=== PATIENT | female | born 1940 | race Caucasian/White ===

== ENCOUNTER → 2018-01-04 | Outpatient (CLI) | payer MEDICARE, OTHER ==
[~2018-01-04] MED LIST: ACCUNEB SO1.25 MG/1; ADVAIR 500-501 EACH INH; ATIVAN0.5 MG PO; AZASITE2.5 ML; AZASITE2.5 ML OP; AZASITE2.5 ML OPHTHALMIC; BROMDAY; BROMFENAC SODI2.5 ML OP; BROMFENAC SODI2.5 ML OPHTHALMIC; CARVEDILOL6.25 MG PO; CO Q-10100 MG PO; COQ-10100 MG PO; COREG6.25 MG PO; COUMADIN 1MG TAB1 M1 PO; COUMADIN 2 MG TA2 M1 PO; COUMADIN 3 MG TA3 M1 PO; DILTIAZEM; DILTIAZEM 24HR240 M2 PO; DILTIAZEM ER120 M1 PO; DUONEB 2.5-0.5 M3 ML INH; FLONASE 0.05%50 MCG NASAL; LASIX 40 MG TAB40 M1 PO; LASIX 40 MG TAB40 M2 PO; LIPITOR 10 MG10 M1 PO; LIPITOR10 MG PO; LISINOPRIL5 MG; LISINOPRIL5 MG PO; MIRAPEX0.125 MG PO; MUCINEX TA600 MG/TA2 PO; MUCINEX600 MG PO; NITROGLYCERIN0.4 MG SUBLING; POTASSIUM20 PO; PREDNISONE 10 M10 M1 PO; PREDNISONE 10 M10 MG PO; PREDNISONE 20 M20 MG PO; PRINIVIL5 MG PO; SINGULAIR 10 MG10 M1 PO; VENTOLIN HFA 108; VENTOLIN HFA 1818 GM INH; VENTOLIN HFA INH8 GM INH; VITAMIN D1000 UNI1 PO; VITAMIN D400 UNI1 PO; VITAMIN D400 UNIT PO; XANAX 0.5 MG0.5 M1 PO; XANAX 0.5 MG0.5 MG PO; XOPENEX HF1 UDINHALE IH; XOPENEX HF1 UDINHALE INH; ZESTORETIC 20-1 EAC3 PO
== END ==
LOC: M.RAD 10:50
DX: I51.7 Cardiomegaly (principal); I25.9 Chronic ischemic heart disease, unspecified; I10 Essential (primary) hypertension; E78.5 Hyperlipidemia, unspecified; R13.10 Dysphagia, unspecified; Z95.1 Presence of aortocoronary bypass graft

== ENCOUNTER → 2018-01-09 | Outpatient (CLI) | payer MEDICARE, OTHER | LOC: M.RAD 10:23 | DX: R13.12 Dysphagia, oropharyngeal phase (principal); I25.9 Chronic ischemic heart disease, unspecified; I10 Essential (primary) hypertension; E78.5 Hyperlipidemia, unspecified ==

== ENCOUNTER → 2018-01-11 | Outpatient (CLI) | payer MEDICARE, OTHER | LOC: M.NUC 01-04 11:51 | DX: K31.84 Gastroparesis (principal); I10 Essential (primary) hypertension; E78.5 Hyperlipidemia, unspecified; I25.9 Chronic ischemic heart disease, unspecified; R13.10 Dysphagia, unspecified ==

== ENCOUNTER → 2018-03-08 | Outpatient (CLI) | payer MEDICARE, OTHER ==
[2018-03-08 10:59] LABS: ALBUMIN 3.6 g/dL (3.4-5.0); CALCIUM 8.8 mg/dL (8.5-10.1); CREATININE 1.7 mg/dL (0.6-1.3); POTASSIUM 4.1 mmol/L (3.5-5.1); TOTAL BILIRUBIN 0.5 mg/dL (<0.1-1.0); TOTAL PROTEIN 7.4 g/dL (6.4-8.2)
[2018-03-09 10:13] LABS: COMPLEMENT-C4 26 mg/dL (14-44); HEPATITIS B SURFACE AG Negative (Negative)
[2018-03-09 10:59] LABS: GLYCOHEMOGLOBIN (HGB A1C) 5.4 % (4.8-5.6)
[2018-03-12 09:09] LABS: ANA INTERPRETATION Positive (Negative)
[2018-03-13 07:07] LABS: GLOBULIN TOTAL 3.2 g/dL (2.2-3.9); M-SPIKE Not Observed g/dL (Not Observed)
== END ==
LOC: M.ULTRA 09:30
PROVIDERS: Internal Medicine Nephrology
DX: N18.5 Chronic kidney disease, stage 5 (principal); R79.89 Other specified abnormal findings of blood chemistry

== ENCOUNTER → 2018-03-12 | Outpatient (CLI) | payer MEDICARE, OTHER ==
[2018-03-13 05:14] LABS: URINE CREATININE 67.1 mg/dL (Not Estab.); URINE CREATININE (GM/24H) 805 mg/24 hr (800-1800); URINE PROTEIN (MG/DL) 17.8 mg/dL (Not Estab.)
[2018-03-14 16:08] LABS: URINE PROTEIN 214 mg/24 hr (30-150)
== END ==
LOC: M.LAB 09:44
PROVIDERS: Internal Medicine Nephrology
DX: N18.4 Chronic kidney disease, stage 4 (severe) (principal); I12.9 Hypertensive chronic kidney disease with stage 1 through stage 4 chronic kidney disease, or unspecified chronic kidney disease; E78.5 Hyperlipidemia, unspecified; I25.9 Chronic ischemic heart disease, unspecified

== ENCOUNTER → 2018-08-08 | Outpatient (CLI) | payer MEDICARE, OTHER ==
[2018-08-08 14:05] LABS: ABSOLUTE BASOPHILS 0.1 thou/uL (0.0-0.2); ABSOLUTE EOSINOPHILS 0.2 thou/uL (0.0-0.7); ABSOLUTE LYMPHOCYTES 1.1 thou/uL (0.8-5.3); ABSOLUTE MONOCYTES 0.7 thou/uL (0.0-1.2); ABSOLUTE NEUTROPHILS 5.4 thou/uL (1.6-8.1); BASOPHILS 1.3 %; EOSINOPHILS 2.1 %; HEMATOCRIT 33.2 % (37.0-47.0); HEMOGLOBIN 10.9 gm/dL (12.0-15.0); LYMPHOCYTES 15.1 %; MCV 84.9 fL (80.0-100.0); MONOCYTES 9.5 %; NUCLEATED RBCS 0 /100WBC; PLATELET COUNT* 219 thou/uL (150-400); RBC 3.91 mil/uL (4.20-5.00); RDW-CV 15.1 % (10.5-14.5); WBC 7.5 thou/uL (4.0-11.0)
[2018-08-08 14:18] LABS: ALBUMIN 3.9 g/dL (3.4-5.0); CALCIUM 8.9 mg/dL (8.5-10.1); CREATININE 1.6 mg/dL (0.6-1.3); PHOSPHORUS* 2.8 mg/dL (2.5-4.9); POTASSIUM 3.2 mmol/L (3.5-5.1)
[2018-08-08 21:10] LABS: eGFR IF AFRICAN AMERICAN 39 (>59)
[2018-08-09 11:10] LABS: PARATHYROID HORMONE 143 pg/mL (15-65)
== END ==
LOC: M.LAB 13:38
PROVIDERS: Internal Medicine Nephrology
DX: I13.0 Hypertensive heart and chronic kidney disease with heart failure and stage 1 through stage 4 chronic kidney disease, or unspecified chronic kidney disease (principal); N18.4 Chronic kidney disease, stage 4 (severe); I50.9 Heart failure, unspecified

== ENCOUNTER → 2018-10-29 | Outpatient (CLI) | payer MEDICARE, OTHER ==
[2018-10-29 15:21] LABS: ABSOLUTE BASOPHILS 0.1 thou/uL (0.0-0.2); ABSOLUTE EOSINOPHILS 0.1 thou/uL (0.0-0.7); ABSOLUTE MONOCYTES 0.6 thou/uL (0.0-1.2); ABSOLUTE NEUTROPHILS 6.7 thou/uL (1.6-8.1); BASOPHILS 1.3 %; EOSINOPHILS 1.5 %; HEMOGLOBIN 11.6 gm/dL (12.0-15.0); LYMPHOCYTES 11.6 %; MCH 27.3 pg (26.0-34.0); MCHC 33.1 g/dL (28.0-37.0); MCV 82.6 fL (80.0-100.0); MONOCYTES 7.5 %; NUCLEATED RBCS 0 /100WBC; PLATELET COUNT* 202 thou/uL (150-400); POLYS 78.1 %; RBC 4.24 mil/uL (4.20-5.00); RDW-CV 16.3 % (10.5-14.5); WBC 8.6 thou/uL (4.0-11.0)
[2018-10-29 15:31] LABS: ALBUMIN 4.1 g/dL (3.4-5.0); CALCIUM 9.3 mg/dL (8.5-10.1); CREATININE 2.1 mg/dL (0.6-1.3); PHOSPHORUS* 3.6 mg/dL (2.5-4.9); POTASSIUM 4.2 mmol/L (3.5-5.1)
[2018-10-29 15:39] LABS: CALCIUM 9.5 mg/dL (8.5-10.1); CREATININE 2.1 mg/dL (0.6-1.3); PHOSPHORUS* 3.9 mg/dL (2.5-4.9)
== END ==
LOC: M.LAB 14:50
PROVIDERS: Internal Medicine Nephrology
DX: I12.9 Hypertensive chronic kidney disease with stage 1 through stage 4 chronic kidney disease, or unspecified chronic kidney disease (principal); N18.3 Chronic kidney disease, stage 3 (moderate); E78.5 Hyperlipidemia, unspecified

== ENCOUNTER → 2020-01-07 | Outpatient (CLI) | payer MEDICARE, OTHER | LOC: M.WC 07:37 | DX: L97.811 Non-pressure chronic ulcer of other part of right lower leg limited to breakdown of skin (principal); S80.822A Blister (nonthermal), left lower leg, initial encounter; S80.821A Blister (nonthermal), right lower leg, initial encounter; E78.00 Pure hypercholesterolemia, unspecified; I87.2 Venous insufficiency (chronic) (peripheral); I89.0 Lymphedema, not elsewhere classified; I48.91 Unspecified atrial fibrillation; I13.0 Hypertensive heart and chronic kidney disease with heart failure and stage 1 through stage 4 chronic kidney disease, or unspecified chronic kidney disease; I50.9 Heart failure, unspecified; N18.9 Chronic kidney disease, unspecified; J45.909 Unspecified asthma, uncomplicated; F41.9 Anxiety disorder, unspecified; Z86.73 Personal history of transient ischemic attack (TIA), and cerebral infarction without residual deficits; Z95.1 Presence of aortocoronary bypass graft; Z95.0 Presence of cardiac pacemaker; Z98.49 Cataract extraction status, unspecified eye; X58.XXXA Exposure to other specified factors, initial encounter; Y93.89 Activity, other specified; Y92.89 Other specified places as the place of occurrence of the external cause; Y99.8 Other external cause status ==

== ENCOUNTER → 2020-01-14 | Outpatient (CLI) | payer MEDICARE, OTHER | LOC: M.WC 05:20 | DX: L97.811 Non-pressure chronic ulcer of other part of right lower leg limited to breakdown of skin (principal); S80.821D Blister (nonthermal), right lower leg, subsequent encounter; I87.2 Venous insufficiency (chronic) (peripheral); I89.0 Lymphedema, not elsewhere classified; I48.91 Unspecified atrial fibrillation; I13.0 Hypertensive heart and chronic kidney disease with heart failure and stage 1 through stage 4 chronic kidney disease, or unspecified chronic kidney disease; I50.9 Heart failure, unspecified; N18.9 Chronic kidney disease, unspecified; E78.00 Pure hypercholesterolemia, unspecified; J45.909 Unspecified asthma, uncomplicated; F41.9 Anxiety disorder, unspecified; Z86.73 Personal history of transient ischemic attack (TIA), and cerebral infarction without residual deficits; X58.XXXD Exposure to other specified factors, subsequent encounter ==

== ENCOUNTER → 2020-01-21 | Outpatient (CLI) | payer MEDICARE, OTHER | LOC: M.WC 04:54 | DX: L97.811 Non-pressure chronic ulcer of other part of right lower leg limited to breakdown of skin (principal); I89.0 Lymphedema, not elsewhere classified; I87.2 Venous insufficiency (chronic) (peripheral); I48.91 Unspecified atrial fibrillation; I13.0 Hypertensive heart and chronic kidney disease with heart failure and stage 1 through stage 4 chronic kidney disease, or unspecified chronic kidney disease; I50.9 Heart failure, unspecified; N18.9 Chronic kidney disease, unspecified; E78.00 Pure hypercholesterolemia, unspecified; J45.909 Unspecified asthma, uncomplicated; F41.9 Anxiety disorder, unspecified; Z86.73 Personal history of transient ischemic attack (TIA), and cerebral infarction without residual deficits ==

== ENCOUNTER → 2020-02-04 | Outpatient (CLI) | payer MEDICARE, OTHER | LOC: M.WC 04:45 | DX: L97.811 Non-pressure chronic ulcer of other part of right lower leg limited to breakdown of skin (principal); I87.2 Venous insufficiency (chronic) (peripheral); I89.0 Lymphedema, not elsewhere classified; I48.91 Unspecified atrial fibrillation; I13.0 Hypertensive heart and chronic kidney disease with heart failure and stage 1 through stage 4 chronic kidney disease, or unspecified chronic kidney disease; I50.9 Heart failure, unspecified; N18.9 Chronic kidney disease, unspecified; E78.00 Pure hypercholesterolemia, unspecified; J45.909 Unspecified asthma, uncomplicated; F41.9 Anxiety disorder, unspecified; Z86.73 Personal history of transient ischemic attack (TIA), and cerebral infarction without residual deficits; Z95.1 Presence of aortocoronary bypass graft; Z95.4 Presence of other heart-valve replacement ==

== ENCOUNTER → 2020-02-18 | Outpatient (CLI) | payer MEDICARE, OTHER ==
[~2020-02-18] MED LIST changes: +BUMETANIDE 1 MG1 M1 PO; +ELIQUIS5 MG PO; +IPRAT-ALBUT 0.5-3 ML INH; +LEVAQUIN 500 M500 M3 PO; -MUCINEX TA600 MG/TA2 PO; +SENNA-TIME S T1 EACH PO; +SPIRONOLACTONE25 MG PO
== END ==
LOC: M.WC 03:52
PROVIDERS: ATTEND Emergency Medicine Undersea and Hyperbaric Medicine
DX: L97.811 Non-pressure chronic ulcer of other part of right lower leg limited to breakdown of skin (principal); E78.00 Pure hypercholesterolemia, unspecified; I13.0 Hypertensive heart and chronic kidney disease with heart failure and stage 1 through stage 4 chronic kidney disease, or unspecified chronic kidney disease; I50.9 Heart failure, unspecified; N18.9 Chronic kidney disease, unspecified; I89.0 Lymphedema, not elsewhere classified; I87.2 Venous insufficiency (chronic) (peripheral); I48.91 Unspecified atrial fibrillation; J45.909 Unspecified asthma, uncomplicated; F41.9 Anxiety disorder, unspecified; Z86.73 Personal history of transient ischemic attack (TIA), and cerebral infarction without residual deficits; Z95.1 Presence of aortocoronary bypass graft

== ENCOUNTER → 2020-02-25 | Outpatient (CLI) | payer MEDICARE, OTHER | LOC: M.WC 04:57 | PROVIDERS: ATTEND Emergency Medicine Undersea and Hyperbaric Medicine | DX: L97.811 Non-pressure chronic ulcer of other part of right lower leg limited to breakdown of skin (principal); S80.821D Blister (nonthermal), right lower leg, subsequent encounter; I89.0 Lymphedema, not elsewhere classified; I87.2 Venous insufficiency (chronic) (peripheral); I48.91 Unspecified atrial fibrillation; I13.0 Hypertensive heart and chronic kidney disease with heart failure and stage 1 through stage 4 chronic kidney disease, or unspecified chronic kidney disease; I50.9 Heart failure, unspecified; N18.9 Chronic kidney disease, unspecified; E78.00 Pure hypercholesterolemia, unspecified; J45.909 Unspecified asthma, uncomplicated; F41.9 Anxiety disorder, unspecified; Z95.1 Presence of aortocoronary bypass graft; Z95.4 Presence of other heart-valve replacement; Z86.73 Personal history of transient ischemic attack (TIA), and cerebral infarction without residual deficits; X58.XXXD Exposure to other specified factors, subsequent encounter ==

== ENCOUNTER 2020-03-02 11:46 | Inpatient (IN) | payer MEDICARE, OTHER ==
[~2020-03-02] VITALS: Ht 149.9 cm; Wt 87.1 kg
[~2020-03-02 11:46] MED LIST changes: -BUMETANIDE 1 MG1 M1 PO; -ELIQUIS5 MG PO; -LEVAQUIN 500 M500 M3 PO; -SENNA-TIME S T1 EACH PO; -SPIRONOLACTONE25 MG PO
[2020-03-02 12:17] VITALS: BP 122/36
[2020-03-02] MEDS ORDERED: ELIQUIS5 MG PO (13:19)
[2020-03-02] MEDS ORDERED: POTASSIUM20 PO (13:20)
[2020-03-02 13:26] LABS: ABSOLUTE EOSINOPHILS 0.1 thou/uL (0.0-0.7); ABSOLUTE LYMPHOCYTES 0.6 thou/uL (0.8-5.3); ABSOLUTE MONOCYTES 0.8 thou/uL (0.0-1.2); ABSOLUTE NEUTROPHILS 5.8 thou/uL (1.6-8.1); BASOPHILS 0.7 %; EOSINOPHILS 1.1 %; HEMATOCRIT 31.2 % (37.0-47.0); LYMPHOCYTES 8.5 %; MCH 20.1 pg (26.0-34.0); MCHC 28.9 g/dL (28.0-37.0); MCV 69.6 fL (80.0-100.0); MONOCYTES 11.3 %; MPV 8.5 fl. (7.2-11.1); NUCLEATED RBCS 0 /100WBC; PLATELET COUNT* 89 thou/uL (150-400); POLYS 78.4 %; RBC 4.49 mil/uL (4.20-5.00); RDW-CV 20.1 % (10.5-14.5); WBC 7.4 thou/uL (4.0-11.0)
[2020-03-02 13:44] LABS: APTT 25.9 Seconds (25.0-31.3); CALCIUM 8.5 mg/dL (8.5-10.1); CREATININE 2.4 mg/dL (0.6-1.3); INR 1.3; POTASSIUM 3.8 mmol/L (3.5-5.1); PROTIME 12.9 Seconds (9.20-11.50)
[2020-03-02 13:54] LABS: ALBUMIN 3.5 g/dL (3.4-5.0); TOTAL BILIRUBIN 1.6 mg/dL (<0.1-1.0); TOTAL PROTEIN 6.9 g/dL (6.4-8.2)
[2020-03-02 14:11] LABS: ANISOCYTOSIS 2+; HYPOCHROMASIA 2+; MICROCYTES 3+; POIKILOCYTOSIS 3+
--- NOTE | 2020-03-02 15:39 | EKG ---
[place] [address] ELECTROCARDIOGRAM REPORT Name: RYAN WYLIE Room: [place] [address] ADM IN .R.#: [id number] Admission: 03/02/20 Attend Phys: Ashwini tripp Sa Discharge: Date of : 40 Date of Service: 03/02/20 1303 Report #: [id number] THIS REPORT FOR: //name// [facility] ED Test Date: 2020-03-02 Test Time: 13:03:10 Pat Name: RYAN WYLIE Department: Room: [facility] Gender: F Crm Marketing Specialist: PHOEBE : 1940 Requested By: Destinee Barrios Order Number: [id number] MD: Mark Sandoval Measurements Intervals [place] Rate: 68 P: 0 [place]: 80 QRS: 117 QRSD: 144 T: 179 QT: 466 QTc: 496 Interpretive Statements Ventricular-paced complexes No further rhythm analysis attempted due to paced rhythm Compared to ECG 02/21/2014 10:18:21 ventricular paced rhythm no noted Electronically Signed On 03-02-2020 15:38:41 CDT by Mark Sandoval [email or web address] <ELECTRONICALLY SIGNED> By: Mark Sandoval MD, [facility] 03/02/20 1538 1303 1303 Mark Sandoval MD, [facility] /EPI
[2020-03-02 15:52] LABS: % SATURATION 4 % (20-39); IRON 17 ug/dL (50-175)
[2020-03-02 19:57] VITALS: BP 161/71
[2020-03-02 21:00] VITALS: BP 134/48
[2020-03-03 04:00] VITALS: BP 132/61
[2020-03-03 08:00] VITALS: BP 176/65
[2020-03-03 10:55] LABS: HEMATOCRIT 28.7 % (37.0-47.0); HEMOGLOBIN 8.2 gm/dL (12.0-15.0); MCH 20.1 pg (26.0-34.0); MCHC 28.7 g/dL (28.0-37.0); MCV 69.8 fL (80.0-100.0); MPV 8.6 fl. (7.2-11.1); RBC 4.11 mil/uL (4.20-5.00); RDW-CV 20.2 % (10.5-14.5); WBC 3.6 thou/uL (4.0-11.0)
[2020-03-03 11:01] LABS: ALBUMIN 3.2 g/dL (3.4-5.0); CALCIUM 8.2 mg/dL (8.5-10.1); CREATININE 2.6 mg/dL (0.6-1.3); MAGNESIUM 2.6 mg/dL (1.8-2.4); PHOSPHORUS* 5.4 mg/dL (2.5-4.9); POTASSIUM 4.4 mmol/L (3.5-5.1)
[2020-03-03 12:20] VITALS: BP 132/69
--- NOTE | 2020-03-03 12:44 | 2DMMODE ---
[place] [address] 2 D/M-MODE ECHOCARDIOGRAM Name: RYAN WYLIE Room: [address] ADM IN M.R.#: [id number] Admission: 03/02/20 Attend Phys: Ashwini tripp Sa Discharge: Date of : 40 Date of Service: 03/03/20 1243 Report #: [id number] THIS REPORT FOR: cc: Mark Glaser MD, David L. MD List[place], Michael J. MD [facility] ~ APPROVED REPORT Study performed: 03/03/2020 09:43:48 EXAM: Comprehensive 2D, Doppler, and color-flow Echocardiogram Patient Location: In-Patient BSA: 1.73 HR: 59 bpm BP: 132/61 mmHg Other Information Study Quality: Fair Technically limited study due to inability to position patient. Indications Dyspnea 2D Dimensions IVSd: 12.55 (7-11mm) LVOT Diam: 15.86 (18-24mm) LVDd: 42.45 mm PWd: 10.52 (7-11mm) Ascending Ao: 31.27 (22-36mm) LVDs: 26.23 (25-40mm) Aortic Root: 29.53 mm Volumes Left Atrial Volume (Systole) LA ESV Index: 45.40 mL/m2 Aortic Valve AoV Peak Wojciech.: 3.99 m/s AO Peak Gr.: 63.58 mmHg LVOT Max P.72 mmHg AO Mean Gr.: 38.29 mmHg LVOT Mean P.98 mmHg LVOT Max V: 0.66 m/s AO V2 VTI: 73.91 cm LVOT Mean V: 0.46 m/s NICOLE (VTI): 0.45 cm2 LVOT V1 VTI: 16.96 [place] [address] 2 D/M-MODE ECHOCARDIOGRAM Name: RYAN WYLIE Room: [address] IN .R.#: [id number] Admission: 03/02/20 Attend Phys: Ashwini tripp Sa Discharge: Date of : 40 Date of Service: 03/03/20 1243 Report #: [id number] Mitral Valve E/A Ratio: 2.65 MV Decel. Time: 165.86 ms MV E Max Wojciech.: 1.44 m/s MV PHT: 48.10 ms MVA (PHT): 4.57 cm2 TDI E/Lateral E': 13.09 E/Medial E': 16.00 Medial E' Wojciech.: 0.09 m/s Lateral E' Wojciech.: 0.11 m/s Pulmonary Valve PV Peak Wojciech.: 0.94 m/s PV Peak Gr.: 3.54 mmHg Tricuspid Valve RAP Estimate: 20.00 mmHg TR Peak Gr.: 37.35 mmHg RVSP: 57.35 mmHg PA Pressure: 57.35 mmHg Left Ventricle The left ventricle is normal size. There is normal LV segmental wall motion. There is normal left ventricular wall thickness. Left ventricular systolic function is normal. LVEF is 50-55%. Severe diastolic dysfunction is present (restrictive filling). Right Ventricle Right ventricle is moderately dilated. The right ventricular systolic function is normal. Atria Left atrium is moderately dilated. Right atrium is moderately dilated. Aortic Valve Bioprosthetic aortic valve is present. No aortic regurgitation is present. Moderate aortic stenosis. Mitral Valve There is mitral annular calcification. Mild mitral regurgitation. No evidence of mitral valve stenosis. Tricuspid Valve The tricuspid valve is normal in structure. Moderate tricuspid regurgitation. The RVSP is 40-[place] [address] 2 D/M-MODE ECHOCARDIOGRAM Name: RYAN WYLIE Room: [address] IN [facility]#: [id number] Admission: 03/02/20 Attend Phys: Ashwini tripp Sa Discharge: Date of : 40 Date of Service: 03/03/20 1243 Report #: [id number] Pulmonic Valve The pulmonary valve is normal in structure. Mild pulmonic regurgitation. Great Vessels The aortic root is normal in size. IVC is dilated. Pericardium There is no pericardial effusion. Pleural effusion. <Conclusion> The left ventricle is normal size. There is normal left ventricular wall thickness. Left ventricular systolic function is normal. LVEF is 50-55%. Severe diastolic dysfunction is present (restrictive filling). Right ventricle is moderately dilated. Left atrium is moderately dilated. Right atrium is moderately dilated. Bioprosthetic aortic valve is present. Moderate aortic stenosis. Mild mitral regurgitation. Moderate tricuspid regurgitation. The RVSP is 40-45 mmHg. IVC is dilated. <ELECTRONICALLY SIGNED> By: Pa Estrella MD, FACC 03/03/20 1243 1243 1243 Pa Estrella MD, FACC /INF
[2020-03-03 16:55] VITALS: BP 120/58
[2020-03-03 19:30] VITALS: BP 114/43
[2020-03-04] VITALS: BP 125/50
[2020-03-04 04:00] VITALS: BP 115/60
[2020-03-04 08:03] VITALS: BP 104/52
[2020-03-04 10:30] LABS: HEMATOCRIT 29.3 % (37.0-47.0); HEMOGLOBIN 8.4 gm/dL (12.0-15.0); MCH 20.1 pg (26.0-34.0); MCHC 28.7 g/dL (28.0-37.0); MPV 8.6 fl. (7.2-11.1); RBC 4.19 mil/uL (4.20-5.00); RDW-CV 20.5 % (10.5-14.5)
[2020-03-04 10:43] LABS: ALBUMIN 3.3 g/dL (3.4-5.0); CALCIUM 8.2 mg/dL (8.5-10.1); CREATININE 3.2 mg/dL (0.6-1.3); MAGNESIUM 2.7 mg/dL (1.8-2.4); PHOSPHORUS* 5.5 mg/dL (2.5-4.9); POTASSIUM 4.3 mmol/L (3.5-5.1)
[2020-03-04 12:30] VITALS: BP 125/68
[2020-03-04 16:00] VITALS: BP 156/45
[2020-03-04 20:00] VITALS: BP 119/47
[2020-03-05] VITALS (7 sets, daily range): BP systolic 98–132; BP diastolic 45–63
[2020-03-05 05:49] LABS: HEMATOCRIT 28.8 % (37.0-47.0); HEMOGLOBIN 8.5 gm/dL (12.0-15.0); MCH 20.2 pg (26.0-34.0); MCHC 29.4 g/dL (28.0-37.0); MCV 68.6 fL (80.0-100.0); MPV 8.5 fl. (7.2-11.1); RBC 4.2 mil/uL (4.20-5.00)
[2020-03-05 06:14] LABS: ALBUMIN 3.2 g/dL (3.4-5.0); CALCIUM 8.5 mg/dL (8.5-10.1); CREATININE 3.4 mg/dL (0.6-1.3); MAGNESIUM 2.7 mg/dL (1.8-2.4); PHOSPHORUS* 5.2 mg/dL (2.5-4.9); POTASSIUM 3.8 mmol/L (3.5-5.1)
[2020-03-05 07:31] LABS: URINE BILIRUBIN NEGATIVE (Negative); URINE BLOOD 2+ (Negative); URINE CLARITY CLOUDY; URINE COLOR YELLOW; URINE GLUCOSE-RANDOM NEGATIVE (Negative); URINE KETONES NEGATIVE (Negative); URINE NITRITE-REFLEX NEGATIVE (Negative); URINE PROTEIN NEGATIVE (Negative); URINE UROBILINOGEN 0.2 E.U./dl (0.2-1.0)
[2020-03-05 07:32] LABS: URINE LEUKOCYTES-REFLEX 2+ (Negative)
[2020-03-05 07:35] LABS: SQUAMOUS 4-10 Moderate /LPF (0-3); URINE RBC >20 Many /HPF (0-2); URINE WBC-REFLEX >25 Many /HPF (0-5)
[2020-03-05 07:36] LABS: BACTERIA-REFLEX >30 Many /HPF (None Seen); CASTS None Seen /LPF (None Seen); CRYSTALS None Seen /LPF (None Seen); MUCUS 0-3 Light strn/LPF (None Seen)
[2020-03-06 04:00] VITALS: BP 127/62
[2020-03-06 05:39] LABS: ALBUMIN 3.1 g/dL (3.4-5.0); CALCIUM 8.4 mg/dL (8.5-10.1); CREATININE 3.8 mg/dL (0.6-1.3); POTASSIUM 3.5 mmol/L (3.5-5.1); TOTAL BILIRUBIN 0.7 mg/dL (<0.1-1.0); TOTAL PROTEIN 6.1 g/dL (6.4-8.2)
[2020-03-06 07:45] VITALS: BP 128/64
--- NOTE | 2020-03-06 08:00 | CON ---
[address] [address] CONSULTATION Name: RYAN WYLIE Room: [address] ADM IN M.R.#: [id number] Admission: 03/02/20 Attend Phys: Ashwini Benedict Discharge: Date of : 40 Report #: [id number] THIS REPORT FOR: //name// cc: Mark Glaser MD, David L. MD ~ THIS REPORT FOR: //name// CC: Mark Young DATE OF SERVICE: 03/05/2020 INFECTIOUS DISEASE CONSULTATION ATTENDING PHYSICIAN: Ashwini Young MD REASON FOR EVALUATION: Antibiotic recommendations for patient with multifocal pyogenic infections including complicated urinary tract infection as well as left lower extremity skin and soft tissue infection with superficial abscess post-debridement with polymicrobial growth in the setting of advanced kidney disease. HISTORY OF PRESENT ILLNESS: The patient examined. This is a 79-year-old woman with fairly extensive medical history, has known severe aortic insufficiency, has got cardiomyopathy, history of congestive heart failure, who was admitted with recommendation that she proceed to the Emergency Room with complaints of difficulty breathing. She was found to have widespread edema including lower extremities, which has been complicated by inflammatory eruption in particularly on the left. Evaluation noted marked pyuria. Urine culture is pending, also had culture from the superficial wound involving the left pretibial site, had polymicrobial growth including Enterococcus, Staphylococcus simulans, Acinetobacter, Citrobacter, Fusobacterium necrophorum as well as Bacteroides fragilis. She did undergo debridement. At present, she complains of dyspnea with poor energy and appetite has been blunted. Denies significant gastrointestinal-related complaints other than that she was empirically started on Bactrim. As noted, her creatinine increased from the mid 2s is up to 3.4. She is mildly encephalopathic. ALLERGIES: None known. MEDICATIONS: Include benzonatate, budesonide, ipratropium and albuterol inhaler, p.r.n. analgesics and antiemetics. PAST MEDICAL HISTORY: Hypertension, aortic insufficiency, described as severe asthma, hyperlipidemia, anxiety, insomnia, macular degeneration, chronic venous stasis insufficiency with dermatitis of lower extremities, [place] [address] CONSULTATION Name: RYAN WYLIE Room: [address] IN [facility]#: [id number] Admission: 03/02/20 Attend Phys: Ashwini Benedict Discharge: Date of : 40 Report #: [id number] retinopathy, has a pacemaker. SOCIAL HISTORY: Nonsmoker, no ethanol, no illicit drug use. FAMILY HISTORY: Noncontributory. REVIEW OF SYSTEMS: Otherwise, unremarkable 10-point review of systems. PHYSICAL EXAMINATION: GENERAL: She appears chronically ill, undernourished. She is in moderate distress secondary to her increased respiratory effort. VITAL SIGNS: Temperature 97.9, pulse 59, respirations 20, blood pressure 98/47. SKIN: Warm, dry. HEENT: Normocephalic. Extraocular muscles intact. NECK: Supple. LUNGS: Scattered coarse breath sounds. HEART: Borderline bradycardic, has a loud systolic murmur. ABDOMEN: Soft, nontender. EXTREMITIES: I did examine bilateral lower extremities. Generally, she has had superficial, although extensive ulceration to the full thickness of the skin involving the left distal pretibial site anterior to medially, somewhat friable. There is no particular purulence, no odor. Overall degree of edema is only mild. : Deferred. RECTAL: Deferred. LABORATORY DATA: Cultures as described above. Chest x-ray, cardiomegaly with mild vascular congestion and bibasilar atelectasis/pneumonitis. Small bilateral pleural effusions. Urinalysis greater than 25 white cells, greater than 30 bacteria. Electrolytes: Sodium 137, potassium 3.8, chloride 101, bicarbonate is 32, anion gap of 4, BUN and creatinine 7 and 73.4, glucose of 97. Estimated GFR 13. Albumin of 3.2. CBC: White count 8.0, H and H 8.5 and 28.8, platelets of 101. Blood cultures sterile thus far. Echo, ejection fraction of 55%, severe diastolic dysfunction, left prosthetic aortic valve, moderate aortic stenosis with mild mitral regurgitation. COVID testing was negative. Liver functions were otherwise unremarkable. Albumin of 3.5, total protein 6.9. Lactic acid initially was 1.7. ASSESSMENT: 1. Complicated urinary tract infection. 2. Bilateral lower extremity venous stasis insufficiency with dermatitis, likely component of skin and soft tissue on the left with superficial ulceration, growth of polymicrobial etiology. 3. May have a degree of pneumonitis as well. She remains quite tenuous at this point. I did try to balance her fluid balance. There was aggressive diuresis versus her worsening renal dysfunction. Certainly [place] [address] CONSULTATION Name: RYAN WYLIE Room: [address] ADM IN M.R.#: [id number] Admission: 03/02/20 Attend Phys: Ashwini OllieLuke tripp Felipe Discharge: Date of : 40 Report #: [id number] factor and it has been discontinued by Dr. Suarez. Adjust therapy based on what current culture available is. We may need to adjust that as well. Utilize some piperacillin and tazobactam for the moment as a monotherapy, adjust as needed. She does remain at risk for additional infectious complications. We will add incentive spirometer as well. She is able to increase her activity, try to optimize her nutritional status, which helped overall in particular the wound healing to minimize her any excess protein given her renal dysfunction. <ELECTRONICALLY SIGNED> By: Randell Burger MD 03/06/20 0800 1511 1804Jobre Burger MD /nt
--- NOTE | 2020-03-06 10:17 | CON ---
[address] [address] CONSULTATION Name: RYAN WYLIE Room: [address] ADM IN M.R.#: [id number] Admission: 03/02/20 Attend Phys: Ashwini Benedict Discharge: Date of : 40 Report #: [id number] THIS REPORT FOR: //name// cc: Mark Glaser MD, David L. MD ~ THIS REPORT FOR: //name// CC: Mark Young DATE OF SERVICE: 03/05/2020 REQUESTING PHYSICIAN: Dr. Ashwini Young. HISTORY OF PRESENT ILLNESS: The patient is a 79-year-old female, very well known to us as we follow her in our clinic. She has chronic kidney disease stage 4 with baseline creatinine around 2.4-2.5. She presents with complaints of progressive shortness of breath, increased lower extremity edema and some wounds of both legs, low energy level was found to be in acute kidney injury and also be in volume overload, admitted, started on a Lasix drip. PAST MEDICAL HISTORY: 1. Chronic kidney disease stage 4. 2. History of cardiomyopathy. 3. History of anemia. 4. Recurrent wounds of her legs. 5. History of aortic valve replacement. MEDICATIONS: Prior to admission reviewed. From my standpoint, she was on Lasix, lisinopril, Coreg. FAMILY HISTORY: Noncontributory. SOCIAL HISTORY: No tobacco, no alcohol abuse. REVIEW OF SYSTEMS: Positive for the symptoms as I mentioned earlier, otherwise all systems reviewed and negative. PHYSICAL EXAMINATION: GENERAL: Awake, alert, oriented. VITAL SIGNS: Blood pressure now is 98/48, heart rate 59, afebrile. HEENT: Pupils are round. NECK: Elevated JVD. LUNGS: Decreased air movements bilaterally. CARDIOVASCULAR: [place] [address] CONSULTATION Name: RYAN WYLIE Room: [address] IN [facility]#: [id number] Admission: 03/02/20 Attend Phys: Ashwini Benedict Discharge: Date of : 40 Report #: [id number] ABDOMEN: Obese, soft. EXTREMITIES: Lower extremities with bilateral edema and some wounds. The wounds were dressed. Her chest x-ray revealed some cardiomegaly and mild vascular congestion. ASSESSMENT: 1. Acute kidney injury likely due to cardiomyopathy and fluid overload with decreased perfusion to the kidneys. 2. Chronic kidney disease stage 4. 3. Cardiomyopathy. 4. Anemia. PLAN: 1. Stop her Bactrim. 2. Continue Lasix drip. 3. Ask Dr. Infectious Disease to advise on antibiotics. <ELECTRONICALLY SIGNED> By: Marcus Suarez MD 03/06/20 1017 1413 1505AMD [address]
[2020-03-06 12:39] VITALS: BP 100/64
[2020-03-06 17:13] VITALS: BP 127/65
[2020-03-06 20:00] VITALS: BP 135/60
[2020-03-07 00:06] VITALS: BP 127/54
[2020-03-07 05:16] VITALS: BP 130/56
[2020-03-07 05:37] LABS: ALBUMIN 3.2 g/dL (3.4-5.0); CALCIUM 8.2 mg/dL (8.5-10.1); CREATININE 3.9 mg/dL (0.6-1.3); POTASSIUM 3.4 mmol/L (3.5-5.1); TOTAL BILIRUBIN 0.9 mg/dL (<0.1-1.0); TOTAL PROTEIN 6.3 g/dL (6.4-8.2)
[2020-03-07 05:41] LABS: ALBUMIN 3.2 g/dL (3.4-5.0); CALCIUM 8.1 mg/dL (8.5-10.1); CREATININE 3.9 mg/dL (0.6-1.3); MAGNESIUM 2.7 mg/dL (1.8-2.4); PHOSPHORUS* 5.9 mg/dL (2.5-4.9); POTASSIUM 3.5 mmol/L (3.5-5.1)
[2020-03-07 07:40] VITALS: BP 128/50
[2020-03-07 12:00] VITALS: BP 113/59
[2020-03-07 17:42] VITALS: BP 135/51
[2020-03-07 20:00] VITALS: BP 127/60
[2020-03-08] VITALS: BP 122/59
[2020-03-08 04:00] VITALS: BP 111/43
[2020-03-08 07:37] VITALS: BP 136/52
[2020-03-08 09:09] LABS: HEMATOCRIT 31.3 % (37.0-47.0); HEMOGLOBIN 9.1 gm/dL (12.0-15.0); MCH 20.4 pg (26.0-34.0); MCV 70.4 fL (80.0-100.0); MPV 7.9 fl. (7.2-11.1); RBC 4.44 mil/uL (4.20-5.00); RDW-CV 20.9 % (10.5-14.5); WBC 5.7 thou/uL (4.0-11.0)
[2020-03-08 09:17] LABS: ALBUMIN 3.1 g/dL (3.4-5.0); CALCIUM 8.2 mg/dL (8.5-10.1); MAGNESIUM 2.6 mg/dL (1.8-2.4); PHOSPHORUS* 6.5 mg/dL (2.5-4.9); POTASSIUM 3.8 mmol/L (3.5-5.1)
[2020-03-08 09:57] LABS: CALCIUM 8.2 mg/dL (8.5-10.1); CREATININE 4.1 mg/dL (0.6-1.3); POTASSIUM 3.8 mmol/L (3.5-5.1)
[2020-03-08 12:16] VITALS: BP 124/61
[2020-03-08 16:11] VITALS: BP 123/56
[2020-03-08 20:00] VITALS: BP 126/53
[2020-03-09] VITALS: BP 120/48
[2020-03-09 04:00] VITALS: BP 111/54
[2020-03-09 04:58] LABS: ALBUMIN 2.9 g/dL (3.4-5.0); CALCIUM 8.2 mg/dL (8.5-10.1); CREATININE 4.2 mg/dL (0.6-1.3); MAGNESIUM 2.7 mg/dL (1.8-2.4); PHOSPHORUS* 6.9 mg/dL (2.5-4.9); POTASSIUM 3.7 mmol/L (3.5-5.1)
[2020-03-09 05:03] LABS: CALCIUM 8.1 mg/dL (8.5-10.1); CREATININE 4.4 mg/dL (0.6-1.3); POTASSIUM 3.7 mmol/L (3.5-5.1); TOTAL PROTEIN 5.8 g/dL (6.4-8.2)
[2020-03-09 05:11] LABS: HEMATOCRIT 29.1 % (37.0-47.0); HEMOGLOBIN 8.5 gm/dL (12.0-15.0); MCH 20.9 pg (26.0-34.0); MCHC 29.3 g/dL (28.0-37.0); MCV 71.5 fL (80.0-100.0); MPV 8.4 fl. (7.2-11.1); RBC 4.07 mil/uL (4.20-5.00); RDW-CV 20.3 % (10.5-14.5); WBC 5.9 thou/uL (4.0-11.0)
[2020-03-09 08:00] VITALS: BP 117/52
[2020-03-09 12:00] VITALS: BP 115/61
[2020-03-09 16:00] VITALS: BP 121/60
[2020-03-09 19:40] VITALS: BP 128/59
[2020-03-10] VITALS: BP 142/72
[2020-03-10 04:00] VITALS: BP 147/64
[2020-03-10 05:20] LABS: ALBUMIN 2.9 g/dL (3.4-5.0); CALCIUM 8.3 mg/dL (8.5-10.1); CREATININE 4.3 mg/dL (0.6-1.3); MAGNESIUM 2.9 mg/dL (1.8-2.4); PHOSPHORUS* 6.8 mg/dL (2.5-4.9); POTASSIUM 3.8 mmol/L (3.5-5.1)
[2020-03-10 05:23] LABS: HEMATOCRIT 29.7 % (37.0-47.0); MCH 21.5 pg (26.0-34.0); MCHC 30.2 g/dL (28.0-37.0); MCV 71.2 fL (80.0-100.0); MPV 8.5 fl. (7.2-11.1); RBC 4.17 mil/uL (4.20-5.00); RDW-CV 21.6 % (10.5-14.5); WBC 6.5 thou/uL (4.0-11.0)
[2020-03-10 05:27] LABS: CREATININE 4.3 mg/dL (0.6-1.3); POTASSIUM 3.9 mmol/L (3.5-5.1)
[2020-03-10 11:30] VITALS: BP 135/66
[2020-03-10 16:00] VITALS: BP 137/56
[2020-03-10 20:00] VITALS: BP 136/60
[2020-03-11 00:36] VITALS: BP 133/57
[2020-03-11 04:53] VITALS: BP 147/71
[2020-03-11 06:46] LABS: CALCIUM 8.2 mg/dL (8.5-10.1); CREATININE 4.3 mg/dL (0.6-1.3); MAGNESIUM 2.8 mg/dL (1.8-2.4); POTASSIUM 3.9 mmol/L (3.5-5.1)
[2020-03-11 07:30] VITALS: BP 142/61
[2020-03-11 12:01] VITALS: BP 121/71
[2020-03-11 16:06] VITALS: BP 142/63
[2020-03-11 22:58] LABS: URINE BILIRUBIN NEGATIVE (Negative); URINE BLOOD 1+ (Negative); URINE CLARITY CLEAR; URINE COLOR YELLOW; URINE GLUCOSE-RANDOM NEGATIVE (Negative); URINE KETONES NEGATIVE (Negative); URINE NITRITE-REFLEX NEGATIVE (Negative); URINE PROTEIN NEGATIVE (Negative); URINE UROBILINOGEN 0.2 E.U./dl (0.2-1.0)
[2020-03-11 22:59] LABS: URINE LEUKOCYTES-REFLEX 3+ (Negative)
[2020-03-11 23:05] LABS: SQUAMOUS >10 Many /LPF (0-3)
[2020-03-11 23:06] LABS: CRYSTALS None Seen /LPF (None Seen); MUCUS None Seen strn/LPF (None Seen); URINE RBC 0-2 Rare /HPF (0-2); YEAST-REFLEX Present (None Seen)
[2020-03-11 23:07] LABS: BACTERIA-REFLEX 1-9 Few /HPF (None Seen); CASTS None Seen /LPF (None Seen)
[2020-03-11 23:51] VITALS: BP 136/53
[2020-03-12 05:22] LABS: ALBUMIN 2.8 g/dL (3.4-5.0); CALCIUM 8.3 mg/dL (8.5-10.1); CREATININE 4.1 mg/dL (0.6-1.3); MAGNESIUM 2.9 mg/dL (1.8-2.4); PHOSPHORUS* 7.2 mg/dL (2.5-4.9); POTASSIUM 3.7 mmol/L (3.5-5.1)
[2020-03-12 06:01] VITALS: BP 139/64
[2020-03-12 07:40] VITALS: BP 135/57
[2020-03-12] MEDS ORDERED: SPIRONOLACTONE25 MG PO (09:22)
[2020-03-12] MEDS ORDERED: SENNA-TIME S T1 EACH PO (09:22)
[2020-03-12] MEDS ORDERED: BUMETANIDE 1 MG1 M1 PO (09:22)
[2020-03-12 13:25] VITALS: BP 123/53
[2020-03-12] MEDS ORDERED: LEVAQUIN 500 M500 M3 PO (16:12)
== END 2020-03-12 17:52 | DRG 602 ==
LOC: M.ERS 11:46 → M.2W 14:53 → M.TBA-ER 14:53 → M.2W 20:30
PROVIDERS: Internal Medicine; Internal Medicine Nephrology; Nurse Practitioner Family; Specialist; ADMIT Family Medicine; ATTEND Family Medicine
PROC: 0HBLXZZ Excision of Left Lower Leg Skin, External Approach (ICD-10-PCS; principal; 2020-03-03)
DX: L03.116 Cellulitis of left lower limb (principal); N17.0 Acute kidney failure with tubular necrosis; I50.33 Acute on chronic diastolic (congestive) heart failure; I13.0 Hypertensive heart and chronic kidney disease with heart failure and stage 1 through stage 4 chronic kidney disease, or unspecified chronic kidney disease; N39.0 Urinary tract infection, site not specified; D68.59 Other primary thrombophilia; E44.1 Mild protein-calorie malnutrition; E87.3 Alkalosis; J44.0 Chronic obstructive pulmonary disease with (acute) lower respiratory infection; N18.4 Chronic kidney disease, stage 4 (severe); I42.9 Cardiomyopathy, unspecified; L02.416 Cutaneous abscess of left lower limb; J45.909 Unspecified asthma, uncomplicated; E78.5 Hyperlipidemia, unspecified; F41.9 Anxiety disorder, unspecified; G47.00 Insomnia, unspecified; I48.91 Unspecified atrial fibrillation; I87.8 Other specified disorders of veins; E66.01 Morbid (severe) obesity due to excess calories; E83.39 Other disorders of phosphorus metabolism; L30.8 Other specified dermatitis; D50.9 Iron deficiency anemia, unspecified; J44.9 Chronic obstructive pulmonary disease, unspecified; R23.8 Other skin changes; S80.822A Blister (nonthermal), left lower leg, initial encounter; X58.XXXA Exposure to other specified factors, initial encounter; Y93.89 Activity, other specified; Y92.89 Other specified places as the place of occurrence of the external cause; Y99.8 Other external cause status; Z90.49 Acquired absence of other specified parts of digestive tract; Z95.0 Presence of cardiac pacemaker; Z95.2 Presence of prosthetic heart valve; Z82.49 Family history of ischemic heart disease and other diseases of the circulatory system; Z68.38 Body mass index [BMI] 38.0-38.9, adult; Z79.899 Other long term (current) drug therapy; Z03.818 Encounter for observation for suspected exposure to other biological agents ruled out

== ENCOUNTER 2020-03-12 17:21 | Inpatient (IN) | payer MEDICARE, OTHER ==
[~2020-03-12] VITALS: Ht 149.9 cm; Wt 81.2 kg
[~2020-03-12 17:21] MED LIST changes: +BUMETANIDE 1 MG1 M1 PO; +ELIQUIS5 MG PO; +LEVAQUIN 500 M500 M3 PO; +SENNA-TIME S T1 EACH PO; +SPIRONOLACTONE25 MG PO
--- NOTE | 2020-03-12 19:08 | NUR ---
1750 PATIENT ARRIVED VIA W/C TO ROOM 328. ORIENTED TO ROOM, CALLIGHT INPLACE, CONSENTS SIGNED AT 1900. 02 ON AT 2LPM/NC AND NO RESPIRATORY DISTRESS NOTED. REPORT REC'D FROM LANA WHEAT, ADMISSION ORDERS PUT IN AND MEDS FAXED TO PHARMACY.
[2020-03-12 20:00] VITALS: BP 147/63
[2020-03-13 05:20] LABS: CALCIUM 8.2 mg/dL (8.5-10.1); CREATININE 4.3 mg/dL (0.6-1.3)
[2020-03-13 05:22] LABS: ABSOLUTE BASOPHILS 0.1 thou/uL (0.0-0.2); ABSOLUTE EOSINOPHILS 0.1 thou/uL (0.0-0.7); ABSOLUTE LYMPHOCYTES 0.5 thou/uL (0.8-5.3); ABSOLUTE MONOCYTES 0.8 thou/uL (0.0-1.2); ABSOLUTE NEUTROPHILS 5.8 thou/uL (1.6-8.1); BASOPHILS 1.5 %; EOSINOPHILS 1.1 %; HEMATOCRIT 30.8 % (37.0-47.0); HEMOGLOBIN 9.3 gm/dL (12.0-15.0); LYMPHOCYTES 7.5 %; MCHC 30.2 g/dL (28.0-37.0); MCV 72.8 fL (80.0-100.0); MONOCYTES 11.2 %; MPV 7.5 fl. (7.2-11.1); NUCLEATED RBCS 0 /100WBC; PLATELET COUNT* 105 thou/uL (150-400); POLYS 78.7 %; RBC 4.23 mil/uL (4.20-5.00); RDW-CV 21.5 % (10.5-14.5); WBC 7.3 thou/uL (4.0-11.0)
--- NOTE | 2020-03-13 05:39 | NUR ---
ASSUMED PT CARE AT 1930. PT ALERT AND ORIENTED X4, POLITE AND COOPERATIVE WITH CARES. ADMISSION DATABASE COMPLETED. DRESSING TO BLE C/D/I. PT SITTING IN RECLINER AND WANTS TO SLEEP IN RECLINER SHE DOES AT HOME. ON 2L 02 PER NC. PT UPPER EXTREMITIES EDEMATOUS. PT IS ON 2000CC FLUID RESTRICTION. PT INCONTINENT OF URINE X2, NO STOOL THIS SHIFT. RT TX REFLECTED ON NOV. TYLENOL ONCE FOR LEG PAIN. PT FRUSTRATED THAT RECLINER WON'T RECLINE EXCEPT TO ONE POSITION WHICH IS NOT COMFORTABLE FOR HER. PT CONVINCED TO TRANSFER TO BED. BED ALARM ON FOR SAFETY. HOURLY ROUNDING IN PROGRESS, WILL CONTINUE TO MONITOR.
[2020-03-13 07:28] LABS: ANISOCYTOSIS 2+; HYPOCHROMASIA 1+; MICROCYTES 1+
--- NOTE | 2020-03-13 14:47 | NUR ---
Nutrition: Pt admitted to rehab with debility. H/o afib, pacemaker, HTN, CHF. LLE cellulitis. On daily wts. Wt today: 170#. Heart Healthy diet ordered with fluid restriction 2L. Pt was busy with ST at time of visit. Spoke with RN - pt is eating well. BG WNL, albumin 2.8. Physician indicated Mild PCM - defer. Will follow weekly. Low risk.
--- NOTE | 2020-03-13 18:45 | NUR ---
AM ASSESSMENT AND VITAL SIGNS COMPLETED DOCUMENTED. PT WORKED WITH ALL THERAPIES. PT HAS BEEN INCONTINENT OF URINE, STATES SHE KNOWS WHEN SHE NEEDS TO VOID HOWEVER SHE DOESN'T CALL FOR ASSISTANCE. DRESSINGS TO BILATERAL LOWER LEGS REMAIN C/D/I. FALL PRECAUTIONS AND HOURLY ROUNDING CONTINUE.
[2020-03-13 20:00] VITALS: BP 125/46
--- NOTE | 2020-03-14 05:05 | NUR ---
ASSUMED PT CARE AT 1930. PT ALERT AND ORIENTED X4, POLITE AND COOPERATIVE WITH CARES. DRESSING TO BLE C/D/I. PRN TYLENOL ONCE THIS SHIFT FOR LEG PAIN. PT ON ELIQUIS, HAD PROLONGED NOSEBLEED WHICH RESOLVED ON ITS OWN. PT ON 3L 02 PER NC. ALL EXTREMITIES AND TRUNK ARE EDEMATOUS. PT HAD VERY LARGE SOFT STOOL X1. INCONTINENT OF URINE X3. USES CALL LIGHT APPROPRIATELY. CALL LIGHT IN REACH. BED ALARM ON FOR SAFETY. HOURLY ROUNDING IN PROGRESS, WILL CONTINUE TO MONITOR.
[2020-03-14 08:00] VITALS: BP 108/57
--- NOTE | 2020-03-14 16:44 | NUR ---
ASSUMMED CARE OF PT AT 0730, PT ALERT AND ORIENTE, PT TRANASFERS WITH MIN/MOD ASSIST OF 1, GB WALKER, PT HAS HAD NOSEBLEED OFF AND ON THRUOUT SHIFT, PRESSURE AND ICE APPLIED, O2 REMOVED AT REST PER RT DUE TO O2 SATS OF 94%, INCONTINENT OF LARGE AMOUNT OF URINE, FLUID RESTRICTION MAINTAINED, WRAPS TO CHRISSY LE INTACT, TAKING FOOD AND FLUIDS WELL, AUDIBLE CRACKLES NOTED, NO COUGH, PARTICIPATED IN ALL THERAPIES, HOURLY ROUNDING COMPLETED, ASSESSMENT COMPLETE, WILL CONTINUE TO MONITOR.
[2020-03-14 19:00] VITALS: BP 133/95
[2020-03-14 19:20] VITALS: BP 120/60
--- NOTE | 2020-03-14 19:23 | NUR ---
AT 1850 TURNED PT TO CHANGE SOILED PADS UNDER HER, PT BECAME VERY SOA WITH THE TURNIONG MOVEMENT, PT REPOSTIONED, O2 SATS 96%, AUDIBLE CRACKLES NOTED, PT STATES SHE CANT BREATHE, RESP 24-28, RT CALLED FOR TREATMENT, DR ALVES NOTIFIED, ORDERS RECIEVED, MEDICATION GIVEN, O2 AT 3L, ONCE PT REPOSTIONED AND PT RESTING BREATHING EASES, 133/95, 62, 24 AT 1900. REPORT GIVEN TO NEXT SHIFT, WILL CONTINUE TO MONITOR.
--- NOTE | 2020-03-14 19:50 | NUR ---
IN SEMI-PINZON'S WATCHING TV. STATES PAIN IN LEGS IS AT A "10". TYLENOL GIVEN. 02 NASAL CANNULA AT THREE LITERS. SHORTNESS OF BREATH WITH ANY EXERTION. ANXIOUS AND FUSSY. CALL LIGHT WITHIN REACH.
--- NOTE | 2020-03-15 04:59 | NUR ---
INCONTINENT OF URINE AND LOOSE STOOL X ONE. FAIZA CARE GIVEN. PATIENT BECAME SHORT OF BREATH AND ANXIOUS. PORTABLE FAN PLACED ON BED. BUBBLER ADDED TO OXYGEN. BLEEDING FROM THE NOSE HAS DECREASED. TYLENOL GIVEN AGAIN DURING THE NIGHT FOR BILATERAL LEG PAIN WITH RELIEF. PATIENT GIVEN A PRN BREATHING TREATMENT X ONE DURING THE NIGHT. PATIENT NOT WILLING TO TURN AT THIS POINT SO THAT SHE CAN BE CHECKED FOR INCONTINENCE. BREATHING LESS LABORED. REMAINS ON 02 NC AT 3 LITERS. HOURLY ROUNDING IN PROGRESS.
[2020-03-15 08:00] VITALS: BP 107/44
--- NOTE | 2020-03-15 18:01 | NUR ---
ASSUMMED CARE OF PT AT 0730, PT ALERT AND ORIENTED, PT TRANSFERS WITH ASSIST OF 2 GB WALKER O2, PT UP IN CHAIR, TOLERATES WELL, PT REFUSES TO TURN TO SIDES IN BED DUE TO DIFFICULTY BREATHING AND BECOMES SOA, PT EDEMATOUS, CRACKLES AND WHEESES AUDIBLE AT TIMES, WAFFLE CUSHION IN CHAIR, PT C/O PAIN IN LEGS MORE IN LEFT LEG, MEDICATED PER ORDER, PHYSICIAN CONTACTED AND ORDER OBTAINED FOR GABAPENTIN, SMEARS OF BM THIS SHIFT, PUR WIK URINE SYSTEM PLACED WHEN PT RETURNED TO BED, PT INCONTINENT AND HAVING GOOD AM9UNG OUT THRU SYSTEM, DRESSING CHANGED TO LOWER EXTREMITIES, RIGHT LEG HEALED XEROFAOM NOT PLACED TO RIGHT LEG, MODERATE AMOUNT OF DRAINAGE FROM LEFT LEG, NO NOSE BLEED THIS SHIFT, O2 SATS OF 97% ON 3 L, HOURLY ROUNDING COMPLETED, PT RE POSITIONED SHE AGREED TO, ASSESSMENT COMPLETE, WILL CONTINUE TO MONITOR.
[2020-03-15 20:10] VITALS: BP 102/47
--- NOTE | 2020-03-15 20:10 | NUR ---
IN SEMI-FOWLERS IN BED EATING A SNACK AND WATCHING TV. 02 NASAL CANNULA AT 3 LITERS. VINNIE WRAPS AROUND LEGS DRY/INTACT. 3+ EDEMA TO LEFT HAND. PUR WIK CONNECTED TO SUCTION WITH YELLOW URINE IN COLLECTION VESTIBULE. CALL LIGHT AND TV CONTROL WITHIN REACH.
--- NOTE | 2020-03-16 04:59 | NUR ---
PUR WIK INEFFECTIVE. PATIENT STILL INCONTINENT OF URINE. PUR WIK REMOVED. FAIZA CARE GIVEN. PATIENT TOLERANCE WITH BEING TURNED FOR CARES MUCH IMPROVED. HOURLY ROUNDING IN PROGRESS.
[2020-03-16 05:09] LABS: HEMATOCRIT 30.4 % (37.0-47.0); HEMOGLOBIN 9.1 gm/dL (12.0-15.0); MCH 22.4 pg (26.0-34.0); MCHC 30.1 g/dL (28.0-37.0); MCV 74.4 fL (80.0-100.0); MPV 8.4 fl. (7.2-11.1); RBC 4.08 mil/uL (4.20-5.00)
[2020-03-16 05:40] LABS: CALCIUM 8.3 mg/dL (8.5-10.1); CREATININE 3.8 mg/dL (0.6-1.3); MAGNESIUM 2.9 mg/dL (1.8-2.4); POTASSIUM 3.9 mmol/L (3.5-5.1)
[2020-03-16 08:00] VITALS: BP 122/60
--- NOTE | 2020-03-16 16:55 | NUR ---
Pt known to SW from acute care stay. Pt lives alone but does have family and friend support who could assist at dc if needed. Pt has some DME at home but not oxygen so that is to be determined nearer to dc if pt will need that arranged for home. SW to continue to follow to assist with safe dc planning.
--- NOTE | 2020-03-16 18:14 | NUR ---
PT CONTINUES TO WORK WITH THERAPIES, BECOMES SOA AND FATIGUED QUICKLY. DRESSINGS TO BILATERAL LOWER EXTREMITIES ARE C/D/I. PT'S LEFT FOREARM IS RED AND EDEMATOUS. FALL PRECAUTIONS AND HOURLY ROUNDING CONTINUE.
[2020-03-16 19:15] VITALS: BP 138/49
--- NOTE | 2020-03-16 20:35 | NUR ---
AWAKENED FOR REASSESSMENT AND MEDICATION PASS. 02 NASAL CANNULA AT 2 LITERS. MEPILEX OVER LEFT FOREARM SKIN TEAR SATURATED WITH BLOOD. CLEANSED WITH WOUND CLEANSER AND NEW MEPILEX APPLIED. CALL LIGHT WITHIN REACH.
[2020-03-17 04:46] LABS: ABSOLUTE BASOPHILS 0.1 thou/uL (0.0-0.2); ABSOLUTE EOSINOPHILS 0.1 thou/uL (0.0-0.7); ABSOLUTE MONOCYTES 0.6 thou/uL (0.0-1.2); ABSOLUTE NEUTROPHILS 4.3 thou/uL (1.6-8.1); EOSINOPHILS 1.9 %; HEMATOCRIT 29.5 % (37.0-47.0); LYMPHOCYTES 16.3 %; MCH 22.8 pg (26.0-34.0); MCHC 30.5 g/dL (28.0-37.0); MCV 74.6 fL (80.0-100.0); MPV 7.9 fl. (7.2-11.1); NUCLEATED RBCS 0 /100WBC; PLATELET COUNT* 120 thou/uL (150-400); POLYS 70.8 %; RBC 3.96 mil/uL (4.20-5.00)
[2020-03-17 05:03] LABS: ALBUMIN 2.7 g/dL (3.4-5.0); CALCIUM 8.1 mg/dL (8.5-10.1); CREATININE 3.6 mg/dL (0.6-1.3); MAGNESIUM 2.7 mg/dL (1.8-2.4); TOTAL BILIRUBIN 0.8 mg/dL (<0.1-1.0); TOTAL PROTEIN 6.2 g/dL (6.4-8.2)
--- NOTE | 2020-03-17 05:36 | NUR ---
GAVE TYLENOL FOR COMPLAINT OF PAIN IN LEGS AT 0015 WITH RELIEF. BECAME SHORT OF BREATH AFTER BEING GIVEN CARE FOR INCONTINENCE. PATIENT REPORTED RELIEF AFTER 02 NC WAS INCREASED TO 3 LITERS. REPIRATORY GAVE A PRN BREATHING TREATMENT. HOURLY ROUNDING IN PROGRESS.
[2020-03-17 05:49] LABS: HYPOCHROMASIA 2+; OVALOCYTES 1+
[2020-03-17 05:50] LABS: PLATELET ESTIMATE DECREASED; TARGET CELLS Occasional
[2020-03-17 05:51] LABS: ANISOCYTOSIS 1+; MICROCYTES 1+; POIKILOCYTOSIS 1+
[2020-03-17 08:03] VITALS: BP 109/59
--- NOTE | 2020-03-17 17:07 | NUR ---
AM ASSESSMENT AND VITAL SIGNS COMPLETED DOCUMENTED. PT PARTICIPATEA WITH ALL THERAPIES BUT IS LOW ENDURANCE AND BECOMES SHORT OF AIR WITH MINIMAL ACTIVITY. DRESSING TO LEFT FOREARM CHANGED TWICE BECAUSE THE SKIN TEAR AND SURROUNDING TISSUE CONTINUE TO OOZE. DRESSINGS TO BILATERAL LOWER EXTREMETIES CHANGED ORDERED. PT HAS BEEN CONTINENT OF URINE AT TIMES THIS SHIFT. FALL PRECAUTIONS AND HOURLY ROUNDS CONTINUE.
[2020-03-17 20:03] VITALS: BP 127/58
--- NOTE | 2020-03-18 05:36 | NUR ---
PATIENT SLEPT WELL DURING THIS SHIFT IN RECLINER WITH FEET ELEVATED. PT UP WITH USE OF G.BELT AND WALKER. PT TAKES PILLS ONE AT A TIME WITH WATER. PT ON FLUID RESTRICTION, DRANK APPROX 100ML OF WATER THIS SHIFT. PT WITH SKIN TEARS ON LT FOREARM; DSG C/D/I. PT WITH BILATERAL CELLULITIS IN LOWER ECTREMITIES. FREQUENTLY USED ITEMS AND CALL LIGHT WITHIN REACH. WILL CONTINUE TO MONITOR.
[2020-03-18 07:55] VITALS: BP 115/61
--- NOTE | 2020-03-18 17:22 | NUR ---
LEROY met with pt to review team conference summary and plan to reteam with dc next Sunday 03/25. LEROY asked pt about SW able to contact the family member who would be involved in pt assistance at home and she called her brother. SW spoke with pt brother who put his son on speaker phone and pt nephew discussed needing email with more details and that he would assist in arranging family training and the help pt needs at home. Pt family willing to schedule family training for Monday. Pt became upset after this, pt did not want her nephew to "take over" and be in her business and know everything. SW explained to pt that her family was willing to assist with pt care at home but pt was not sure about wanting their involvement after all. LEROY discussed with Dr Terry who met with pt and then determined that pt would rather go to SNF then go home if family was going to have to help provide more assistance. LEROY did not email pt brother as once the plan at pt request. SW to continue to follow to assist with finalizing safe dc plan. Pt preference for SNF [facility]; SW to fax referral and follow up as needed.
--- NOTE | 2020-03-18 18:52 | NUR ---
ASSESSMENT COMPLETED DOCUMENTED THIS MORNING. 1500CC FLUID RESTRICTION MAINTAINED. PATIENT WAS UP WITH THERAPY AND UNABLE TO AMBULATE, DEMONSTRATES A BOUNCING ON HER BLE, C/O SPASMS AND CRAMPING IN HER HANDS AND ARMS. REQUEST OUT TO EMERY ARNDT RN PALLIATIVE TO DC GABAPENTIN (ONLY NEW MED STARTED OVER THE W/E) AND TRY SOMETHING ELSE FOR PAIN. REC'D ORDERS FOR TRAMADOL 50 MG PRN PAIN AND DC GABAPENTIN. GAVE PATIENT TRAMADOL 50MG AT 1330 WITH VERY GOOD RELIEF. ASSISTED TO BED FOR ULTRASOUND TO OBTAIN DOPPLER OF LUE.
[2020-03-18 19:30] VITALS: BP 111/55
--- NOTE | 2020-03-18 19:30 | NUR ---
IN BED TALKING ON CELL PHONE AND WATCHING TV. IN [employer]. 02 NASAL CANNULA AT 2 LITERS AND 02 SAT OF 100% CALL LIGHT WITHIN REACH.
--- NOTE | 2020-03-19 05:14 | NUR ---
INCONTINENT OF URINE X ONE DURING THE NIGHT. FAIZA CARE GIVEN. SHORTNESS OF BREATH WITH CARES. HOURLY ROUNDING IN PROGRESS.
[2020-03-19 08:00] VITALS: BP 122/64
--- NOTE | 2020-03-19 12:30 | NUR ---
WOUND NURSE: PATIENT SEEN TODAY AND ASSESSED FOR WOUNDS AND IDENTIFIED 3 BULLAE ON THE RIGHT LOWER EXTREMITY. AFFECTED AREA MEASURED 7.0 X 11.0 CM AND WERE INTACT. THESE RUPTURED WITH CLEANSING AND RELEASED LARGE AMOUNT OF CLEAR LIGHT YELLOW DRAINAGE. LLE BULLA HEALING WELL AND MEASURING 9.0 X 11.0 CM AND HAS NO MEASURABLE DEPTH. ESTIMATED 75% INTACT PINK SCAR TISSUE, AND 25% RED, NONGRANULATING TISSUE. BLE LESIONS CLEANSED WITH WOUND CLEANSER AND GAUZE, LOTION TO INTACT SKIN, APPLIED XEROFORM GAUZE UNDER ABD, WRAPPED WITH KERLEX UNDER VINNIE WRAP. ABOVE PROCEDURE TOLERATED WELL BY THE PATIENT. PATIENT INSTRUCTED ON THE IMPORTANCE OF CONTINUED ELEVATION ABOVE HEART WHEN SITTING OR LYING AND LIGHT COMPRESSION USING VINNIE WRAPS TO CONTROL EDEMA. PATIENT CAN'T TOLERATE ANY GREATER COMPRESSION. PATIENT STATES SHE UNDERSTANDS INSTRUCTION PROVIDED.
--- NOTE | 2020-03-19 16:06 | NUR ---
SW spoke with pt friend who reported pt may want referrals/resources for private duty care at home and SW to follow up with pt tomorrow to provide other options vs SNF as back up plan. SW did not follow with trying to arrange family training at this time due to pt request not to involve family too much.
--- NOTE | 2020-03-19 18:24 | NUR ---
AM ASSESSMENT AND VITAL SIGNS COMPLETED DOCUMENTED. PT'S RIGHT LOWER LEG DEVELOPED BLISTERS WHEN SHE AMBULATED THIS AM SO WOUND CONSULT WAS PLACED. BILATERAL LOWER EXTREMITIES ARE BEING TREATED THE SAME AND DRESSINGS WERE BOTH DONE TODAY. FALL PRECAUTIONS AND HOURLY ROUNDING CONTINUE.
[2020-03-19 20:14] VITALS: BP 126/48
--- NOTE | 2020-03-20 04:43 | NUR ---
ASSUMED PT CARE AT 1930. PT ALERT AND ORIENTED X4, POLITE AND COOPERATIVE WITH CARES. PT SITTING UP IN RECLINER TALKING ON CELL PHONE AND WATCHING TELEVISION AT SHIFT CHANGE. DENIES PAIN. ON 2L 02 PER NC. INCONTIENT OF URINE X1 OVERNIGHT. STAFF PROVIDED PERICARE. DRESSING TO BLE C/D/I. CALL LIGHT IN REACH. BED ALARM ON FOR SAFETY. HOURLY ROUNDING IN PROGRESS, WILL CONTINUE TO MONITOR.
[2020-03-20 05:48] LABS: ALBUMIN 2.8 g/dL (3.4-5.0); CALCIUM 8.1 mg/dL (8.5-10.1); CREATININE 3.2 mg/dL (0.6-1.3); MAGNESIUM 2.4 mg/dL (1.8-2.4); POTASSIUM 4.3 mmol/L (3.5-5.1)
[2020-03-20 07:57] VITALS: BP 115/56
--- NOTE | 2020-03-20 18:29 | NUR ---
ASSESSMENT COMPLETED DOCUMENTED THIS MORNING. PATIENT TOLERATES VERY LITTLE THERAPY THAT REQUIRES ANY PHYSICAL ACTIVITY. SITTING IN THE CHAIR SHE PARTICIPATES VERY WELL, WHEN SHE IS UP SHE BECOMES ANXIOUS, INCREASES HER RESP RATE AND STATES SHE CAN'T BREATHE. WHEN SHE IS ASSISTED BACK TO BED AND POSITIONED SHE RESTS MUCH BETTER. 02 CONTINUES AT 2LPM/NC WITH SATS IN THE MID 90'S. BLE REMAIN WRAPPED AND ELEVATED. NO PAIN MEDS NEEDED.
[2020-03-20 20:00] VITALS: BP 117/41
--- NOTE | 2020-03-21 04:55 | NUR ---
ASSUMED PT CARE AT 1930. PT ALREADY IN BED AT SHIFT CHANGE. ALERT AND ORIENTED X4, POLITE AND COOPERATIVE WITH CARES. PT INCONTINENT X2, PERICARE GIVEN. NO STOOL THIS SHIFT. PT VERY SOA ANY TIME SHE IS TURNED WITH CARES AND WHEN BEING BOOSTED UP IN BED. ON 2L 02 PER NC. DRESSINGS TO BLE C/D/I. CALL LIGHT IN REACH. BED ALARM ON FOR SAFETY. HOURLY ROUNDING IN PROGRESS, WILL CONTINUE TO MONITOR.
[2020-03-21 07:45] VITALS: BP 117/55
--- NOTE | 2020-03-21 19:57 | NUR ---
ALERT AND ORIENTED X4. UP WITH 1-2 ASSIST, GAIT BELT AND WALKER. DENIES NEED FOR PAIN MEDICATION WHEN OFFERED. VINNIE WRAP DRESSING REMAINS IN PLACE OVER BILATERAL LOWER EXTREMITIES. BILATERAL TOES WARM AND PINK WITH GOOD CAPILLARY REFILL. REMAINS ON 1500ML FLUID RESTRICTION. DRESSING DRY AND INTACT OVER SKIN TEAR LEFT ARM. REMAINS ON O2 AT 2L/NC TO KEEP O2 SAT IN 90"S. USES CALL LIGHT WHEN NEEDING ASSIST. FALL PRECAUTIONS IN PLACE. BED ALARM AND CHAIR ALARM USED.
[2020-03-21 20:00] VITALS: BP 105/47
--- NOTE | 2020-03-22 05:00 | NUR ---
ASSUMED PT CARE AT 1930. PT ALERT AND ORIENTED X4, POLITE AND COOPERATIVE WITH CARES. DENIES PAIN. PT ON 1500ML FLUID RESTRICTION. DRESSING TO BLE C/D/I. DRESSING TO SKIN TEAR ON LEFT ARM DRY AND INTACT. PT HAS EDEMA IN BOTH UPPER AND LOWER EXTREMITIES. ON 2L 02 PER NC. PT BECOMES SOB WITH THE LEAST EXERTION, I.E., WHEN TURNING IN BED TO BE CLEANED AFTER INCONTINENCE. INCONTINENT X2 OVERNIGHT, PERICARES PROVIDED. USES CALL LIGHT APPROPRIATELY. BED ALARM ON FOR SAFETY. HOURLY ROUNDING IN PROGRESS, WILL CONTINUE TO MONITOR.
[2020-03-22 08:00] VITALS: BP 108/51
[2020-03-22 13:56] VITALS: BP 115/50
--- NOTE | 2020-03-22 17:08 | NUR ---
PT A&O x4, VSS. O2 SUPPORT DECREASED TO 1L/MIN. SOA WITH ACTIVITY. OUT OF BED WITH THE HELP OF A WALKER, MOD ASSIST x1. SAT IN A RECLINER THE WHOLE DAY. B/L LEG AND LT ARM DRESSING CHANGED PER ORDERS. DENIES PAIN. INCONTINENT, BRIEFS CHANGED PER NEED.
[2020-03-22 20:00] VITALS: BP 141/51
--- NOTE | 2020-03-23 04:59 | NUR ---
ASSUMED CARES AT 1920. ALERT AND ORIENTED. PLEASANT. DENIED ANY NEED FOR PAIN MEDS. O2 1L NC. DOES GET EASILY SOA WITH ANY ACTIVITY. DRESSINGS TO BLE AND LEFT FOREARM INTACT. EDEMATOUS TO EXTREMETIES. DID HAVE SMALL BM. USED BEDPAN X 1 BUT IS MOSTLY INCONTINENT OF BOWEL AND BLADDER. REFUSED TO TURN ONTO SIDES IN BED DUE TO GETTING SOA. SLEPT OFF AND ON. CALL LIGHT IN REACH AND BED ALARM ON.
[2020-03-23 06:17] LABS: ALBUMIN 2.8 g/dL (3.4-5.0); CALCIUM 8.5 mg/dL (8.5-10.1); CREATININE 2.8 mg/dL (0.6-1.3); PHOSPHORUS* 5.1 mg/dL (2.5-4.9)
[2020-03-23 07:27] VITALS: BP 108/55
[2020-03-23 14:03] LABS: APTT 28.7 Seconds (25.0-31.3); INR 1.3; PROTIME 12.9 Seconds (9.20-11.50)
--- NOTE | 2020-03-23 17:23 | NUR ---
PT A&OX4 VSS. BLE WRAPPED D/T CELLULITIS. DRESSAINGS REMAIN C/D/I. PT C/O SOA W/ACTIVITY, THIS IS NOT ACUTE THIS SHIFT. PT ON 1L 02 INTERMITTENTLY. PT UP W/ GAIT BELT AND WALKER MIN ASSIST. PT HAD NOSEBLEED INTERMITTENTLY THROUGH OUT MOIRNING. PHYSICIANS AWARE, NASAL SPRAY AND LABS ORDERED AND EXECUTED. PT REMAINS COMPLIANT ON FLUID RESTRICTIONS. BRUISES NOTED TO BLE PRESENT UPON ASSUMING CARE. DRESSING TO LFA FOR SKIN TEAR PRESENT UPON ASSUMING CARE THIS AM. LIMB ALERT BRACELET TO SOLA. PT UP TO RECLINER, CALL LIGHT AND CELL PHONE IN REACH. FALL PRECAUTIONS REMAIN IN PLACE. PT INCONTINENT OF B/B. SMALL BM REPORTED BY NOC RN EARLY AM JUST PRIOR TO ASSUMING CARE OF PT. PT RESTS IN ROOM W/CALL IN REACH. WILL CONTINUE TO MONITOR.
[2020-03-23 19:15] VITALS: BP 112/60
[2020-03-24 04:27] LABS: HEMATOCRIT 30.3 % (37.0-47.0); HEMOGLOBIN 9.5 gm/dL (12.0-15.0)
[2020-03-24 04:32] LABS: ALBUMIN 2.9 g/dL (3.4-5.0); CALCIUM 8.4 mg/dL (8.5-10.1); CREATININE 2.7 mg/dL (0.6-1.3); MAGNESIUM 2.5 mg/dL (1.8-2.4); PHOSPHORUS* 4.8 mg/dL (2.5-4.9); POTASSIUM 4.7 mmol/L (3.5-5.1); TOTAL BILIRUBIN 0.8 mg/dL (<0.1-1.0); TOTAL PROTEIN 6.3 g/dL (6.4-8.2)
[2020-03-24 04:54] LABS: % SATURATION 16 % (20-39); IRON 40 ug/dL (50-175)
--- NOTE | 2020-03-24 04:56 | NUR ---
ASSUMED PT CARE AT 1930. PT ALERT AND ORIENTED X4, POLITE AND COOPERATIVE WITH CARES. PT DENIES PAIN. ON 2L 02 PER NC. SOB WITH ACTIVITY. DRESSING TO BLE C/D/I. DRESSING TO LFA SKIN TEAR INTACT. EXTREMITIES EDEMATOUS. INCONTINENT OF BLADDER. REFUSES TURNS BECAUSE BECOMES SOA. OBSERVED FLUID RESTRICTION. SLEPT WELL OVERNIGHT. CALL LIGHT IN REACH. BED ALARM ON FOR SAFETY. HOURLY ROUNDING IN PROGRESS, WILL CONTINUE TO MONITOR.
[2020-03-24 05:09] LABS: CALCIUM 8.2 mg/dL (8.5-10.1); CREATININE 2.7 mg/dL (0.6-1.3); POTASSIUM 4.7 mmol/L (3.5-5.1)
[2020-03-24 08:00] VITALS: BP 107/48
--- NOTE | 2020-03-24 16:03 | NUR ---
LEROY faxed referral for SNF to pt possible preferences of [facility] and then pt also said she may want to go to [facility]. LEROY sent referral to [facility] and pt has been accepted to [facility] SNF. LEROY told pt that she has been accepted to [facility] for . Pt in agreement with plan. SW to continue to follow to assist with finalizing safe dc plan to [facility] 03/26. [facility] ph [phone]
[2020-03-24 17:06] LABS: CALCIUM 8.3 mg/dL (8.5-10.1); CREATININE 2.6 mg/dL (0.6-1.3); POTASSIUM 4.4 mmol/L (3.5-5.1)
--- NOTE | 2020-03-24 17:12 | NUR ---
AM ASSESSMENT AND VITAL SIGNS COMPLETED DOCUMENTED. PT WORKED WITH ALL THERAPIES, CONTINUES TO BE SHORT OF BREATH WITH MINIMAL ACTIVITY. DRESSING TO BLE AND LEFT FOREARM C/D/I. SALINE LOCK STARTED AND IV IRON INFUSED ORDERED. PT IS PLANNING TO GO TO [facility] ON MONDAY. FALL PRECAUTIONS AND HOURLY ROUNDING CONTINUE.
[2020-03-24 20:00] VITALS: BP 126/51
--- NOTE | 2020-03-25 05:15 | NUR ---
ASSUMED PT CARE AT 1930. PT ALERT AND ORIENTED X4, POLITE AND COOPERATIVE WITH CARES. PT ON 2L 02 PER NC BUT BECOMES SOB WITH SLIGHTEST EXERTION. DRESSINGS CHANGED TO BLE. DRESSING TO LEFT FOREARM C/D/I. PT INCONTINENT OF URINE. NO STOOL THIS SHIFT. PT ANTICIPATING DISCHARGE TO [facility] ON MONDAY. USES CALL LIGHT APPROPRIATELY. CALL LIGHT IN REACH. BED ALARM ON FOR SAFETY. HOURLY ROUNDING IN PROGRESS, WILL CONTINUE TO MONITOR.
[2020-03-25 05:42] LABS: CALCIUM 8.3 mg/dL (8.5-10.1); CREATININE 2.6 mg/dL (0.6-1.3); POTASSIUM 4.7 mmol/L (3.5-5.1)
--- NOTE | 2020-03-25 06:54 | NUR ---
PT HAVING A NOSEBLEED. AFTER COUGHING UP SOME BLOOD CLOTS, IT APPEARS TO HAVE ABATED. WILL CONTINUE TO MONITOR.
[2020-03-25 08:00] VITALS: BP 116/50
[2020-03-25 14:21] VITALS: BP 116/50
--- NOTE | 2020-03-25 16:47 | NUR ---
AM ASSESSMENT AND VITAL SIGNS COMPLETED DOCUMENTED. PT HAS BEEN ALERT, ORIENTED AND PLEASANT. BILATERAL LOWER LEG DRESSINGS C/D/I. PT WORKS WITH ALL THERAPIES AND CONTINUES TO IMPROVE HER STRENGTH AND ENDURANCE. NO C/O PAIN THIS SHIFT. FALL PRECAUTIONS AND HOURLY ROUNDING CONTINUE.
--- NOTE | 2020-03-25 17:34 | NUR ---
LEROY and Dr Terry met with pt and reviewed team conference summary and plan for pt to dc tomorrow, , to SNF. LEROY had received confirmation that [facility] accepted pt but had originally accepted for Monday, LEROY sent message to [facility] admissions asking for acceptance for and had not received confirmation yet. LEROY to try again in the morning and will continue to assist [facility] finalizing safe dc plan/SNF placement for 03/26.
[2020-03-25 19:41] VITALS: BP 111/45
[2020-03-26 04:22] LABS: CALCIUM 8.7 mg/dL (8.5-10.1); CREATININE 2.6 mg/dL (0.6-1.3); POTASSIUM 4.6 mmol/L (3.5-5.1)
--- NOTE | 2020-03-26 06:01 | NUR ---
PT SLEPT WELL OVERNIGHT, USING CALL LITE APPROPRIATELY. INCONTINET URINE OVERNIGHT, FAIZA CARE GIVEN. RFA SKIN TEAR DRSG CDI, BLE DRSGS INTACT. PT TURNED AND REPOSITIONED Q2 HOURS AND PRN FOR SKIN TEAR AND COMFORT. O2 2L NC. SOB WITH EXERTION. HAS DENIED PAIN OR PROBLEMS OVERNIGHT. R FA SLIV. AM LABS DRAWN. CM FOLLOWING FOR POSSIBLE DISCHARGE TODAY TO [facility]. ABLE TO USE CALL LITE AND MAKE NEEDS KNOWN. BED ALARM ON FOR SAFETY OVERNIGHT. UP WITH 1 GB AND WALKER TO BSC.
[2020-03-26 08:00] VITALS: BP 140/44
[2020-03-26 08:45] VITALS: BP 140/44
[2020-03-26] MEDS ORDERED: AFRIN15 M1 NASAL (14:11)
[2020-03-26] MEDS ORDERED: ADVAIR 500-501 EACH INH (14:12)
[2020-03-26] MEDS ORDERED: ACETAMINOPHEN PO (14:24)
--- NOTE | 2020-03-26 15:44 | NUR ---
ASSUMMED CARE OF PT AT 0730, PT ALERT AND ORIENTED, PT TRANSFERS WITH MOD ASSIST GB WALKER, DENIES PAIN, DRESSING CHANGED TO BILATERAL LOWER EXTREMITIES, AND LEFT ELBOW, O2 ON AT 2L AND SATS 100%, TAKING FOOD AND FLUIDS WELL, IV RESTARTED IN RIGHT FA TO GIVE IRON INFUSION AND DC'D AFTER INFUSION FOR DISCHARGE, LARGE BM THIS SHIFT, INCONTINENT OF URINE X 2, ON COMMODE FOR BOWEL MOVEMENT, PARTICIPATED IN ALL THERAPIES, HOURLY ROUNDING COMPLETED, ASSESSMENT COMPLETE, ORDERS OBTAINED FOR DISCHARGE, PT INFORMED, TRANSPORT TO P/ UP PT AT 1630 AND TRANSPORT TO [facility], PT BELONGINGS PACKED, PT INSTRUCTED ON FOLLOW UP VISIT, DRESSING CHANGES, MEDICATIONS ORDERS, WILL CONTINUE TO MONITOR PATIENT UNTIL DISCHARGE.
--- NOTE | 2020-03-26 16:14 | NUR ---
Pt to dc to [facility] today. SW faxed dc orders/med list to admissions at facility [facility]. Transport arranged for 4:00 to 4:30 pm. Pt and pt nurse aware. Chart copied for continuation of care. [facility] ph [phone]
== END 2020-03-26 16:20 | DRG 947 ==
LOC: M.REH 17:21
PROVIDERS: Internal Medicine; Internal Medicine Nephrology; Nurse Practitioner; ADMIT Physical Medicine & Rehabilitation; ATTEND Physical Medicine & Rehabilitation
DX: R53.81 Other malaise (principal); I50.33 Acute on chronic diastolic (congestive) heart failure; N17.0 Acute kidney failure with tubular necrosis; I13.0 Hypertensive heart and chronic kidney disease with heart failure and stage 1 through stage 4 chronic kidney disease, or unspecified chronic kidney disease; N39.0 Urinary tract infection, site not specified; I48.20 Chronic atrial fibrillation, unspecified; E44.1 Mild protein-calorie malnutrition; D68.59 Other primary thrombophilia; L03.116 Cellulitis of left lower limb; N18.4 Chronic kidney disease, stage 4 (severe); E87.3 Alkalosis; E78.5 Hyperlipidemia, unspecified; J45.909 Unspecified asthma, uncomplicated; G47.00 Insomnia, unspecified; R04.0 Epistaxis; F41.9 Anxiety disorder, unspecified; E83.39 Other disorders of phosphorus metabolism; D50.9 Iron deficiency anemia, unspecified; J44.9 Chronic obstructive pulmonary disease, unspecified; Z68.37 Body mass index [BMI] 37.0-37.9, adult; Z90.49 Acquired absence of other specified parts of digestive tract; Z95.0 Presence of cardiac pacemaker

== ENCOUNTER → 2020-03-31 | Outpatient (CLI) | payer MEDICARE, OTHER ==
[~2020-03-31] MED LIST changes: +ACETAMINOPHEN PO; +AFRIN15 M1 NASAL
== END ==
LOC: M.WC 04:48
PROVIDERS: ATTEND Emergency Medicine Undersea and Hyperbaric Medicine
DX: L97.821 Non-pressure chronic ulcer of other part of left lower leg limited to breakdown of skin (principal); L97.811 Non-pressure chronic ulcer of other part of right lower leg limited to breakdown of skin; S51.812A Laceration without foreign body of left forearm, initial encounter; I89.0 Lymphedema, not elsewhere classified; I87.2 Venous insufficiency (chronic) (peripheral); I13.0 Hypertensive heart and chronic kidney disease with heart failure and stage 1 through stage 4 chronic kidney disease, or unspecified chronic kidney disease; I50.9 Heart failure, unspecified; N18.9 Chronic kidney disease, unspecified; I48.91 Unspecified atrial fibrillation; E78.00 Pure hypercholesterolemia, unspecified; J45.909 Unspecified asthma, uncomplicated; F41.9 Anxiety disorder, unspecified; Z86.73 Personal history of transient ischemic attack (TIA), and cerebral infarction without residual deficits; X58.XXXA Exposure to other specified factors, initial encounter; Y93.89 Activity, other specified; Y92.89 Other specified places as the place of occurrence of the external cause; Y99.8 Other external cause status

== ENCOUNTER → 2020-04-07 | Outpatient (CLI) | payer MEDICARE, OTHER | LOC: M.WC 02:24 | PROVIDERS: ATTEND Emergency Medicine Undersea and Hyperbaric Medicine | DX: L97.812 Non-pressure chronic ulcer of other part of right lower leg with fat layer exposed (principal); L97.821 Non-pressure chronic ulcer of other part of left lower leg limited to breakdown of skin; S80.821D Blister (nonthermal), right lower leg, subsequent encounter; I89.0 Lymphedema, not elsewhere classified; I48.91 Unspecified atrial fibrillation; I13.0 Hypertensive heart and chronic kidney disease with heart failure and stage 1 through stage 4 chronic kidney disease, or unspecified chronic kidney disease; I50.9 Heart failure, unspecified; N18.9 Chronic kidney disease, unspecified; I87.2 Venous insufficiency (chronic) (peripheral); E78.00 Pure hypercholesterolemia, unspecified; J45.909 Unspecified asthma, uncomplicated; F41.9 Anxiety disorder, unspecified; Z86.73 Personal history of transient ischemic attack (TIA), and cerebral infarction without residual deficits; X58.XXXD Exposure to other specified factors, subsequent encounter ==

== ENCOUNTER → 2020-04-14 | Outpatient (CLI) | payer MEDICARE, OTHER | LOC: M.WC 05:34 | PROVIDERS: ATTEND Emergency Medicine Undersea and Hyperbaric Medicine | DX: L97.811 Non-pressure chronic ulcer of other part of right lower leg limited to breakdown of skin (principal); L97.821 Non-pressure chronic ulcer of other part of left lower leg limited to breakdown of skin; S80.821D Blister (nonthermal), right lower leg, subsequent encounter; I87.2 Venous insufficiency (chronic) (peripheral); I89.0 Lymphedema, not elsewhere classified; I48.91 Unspecified atrial fibrillation; J45.909 Unspecified asthma, uncomplicated; I13.0 Hypertensive heart and chronic kidney disease with heart failure and stage 1 through stage 4 chronic kidney disease, or unspecified chronic kidney disease; I50.9 Heart failure, unspecified; N18.9 Chronic kidney disease, unspecified; E78.00 Pure hypercholesterolemia, unspecified; F41.9 Anxiety disorder, unspecified; Z86.73 Personal history of transient ischemic attack (TIA), and cerebral infarction without residual deficits; Z95.1 Presence of aortocoronary bypass graft; Z95.4 Presence of other heart-valve replacement; Z79.01 Long term (current) use of anticoagulants; X58.XXXD Exposure to other specified factors, subsequent encounter ==

== ENCOUNTER 2020-04-21 13:54 | Inpatient (IN) | payer MEDICARE, OTHER ==
[~2020-04-21] VITALS: Ht 149.9 cm; Wt 66.2 kg
[2020-04-21 14:06] VITALS: BP 120/54
[2020-04-21 14:30] LABS: ABSOLUTE LYMPHOCYTES 0.4 thou/uL (0.8-5.3); ABSOLUTE MONOCYTES 0.6 thou/uL (0.0-1.2); ABSOLUTE NEUTROPHILS 5.6 thou/uL (1.6-8.1); BASOPHILS 0.7 %; EOSINOPHILS 0.3 %; HEMATOCRIT 39.3 % (37.0-47.0); HEMOGLOBIN 12.5 gm/dL (12.0-15.0); LYMPHOCYTES 5.3 %; MCH 27.8 pg (26.0-34.0); MCHC 31.7 g/dL (28.0-37.0); MCV 87.6 fL (80.0-100.0); MPV 8.6 fl. (7.2-11.1); NUCLEATED RBCS 0 /100WBC; PLATELET COUNT* 88 thou/uL (150-400); POLYS 84.7 %; RBC 4.49 mil/uL (4.20-5.00); RDW-CV 32.4 % (10.5-14.5); WBC 6.6 thou/uL (4.0-11.0)
[2020-04-21 14:37] LABS: APTT 30.1 Seconds (25.0-31.3); INR 1.5; PROTIME 15.7 Seconds (9.20-11.50)
[2020-04-21 14:38] LABS: ANION GAP 11 mmol/L (7-16); BUN 84 mg/dL (7-18); CALCIUM 9.1 mg/dL (8.5-10.1); CHLORIDE 101 mmol/L (98-107); CO2 27 mmol/L (21-32); CREATININE 3.9 mg/dL (0.6-1.3); GLUCOSE 114 mg/dL (70-99); POTASSIUM 4.6 mmol/L (3.5-5.1); SODIUM 139 mmol/L (136-145)
[2020-04-21 14:53] LABS: ALBUMIN 3.9 g/dL (3.4-5.0); ALKALINE PHOSPHATASE 174 U/L (46-116); NT-PRO BRAIN NAT PEPTIDE > 35000 pg/mL (<300); SGOT 19 U/L (15-37); SGPT 16 U/L (30-65); TOTAL BILIRUBIN 1.9 mg/dL (<0.1-1.0); TOTAL PROTEIN 7.8 g/dL (6.4-8.2)
[2020-04-21 16:23] VITALS: BP 117/56
[2020-04-21 16:42] VITALS: BP 120/60
[2020-04-21 17:07] LABS: ANISOCYTOSIS 3+; OVALOCYTES Occasional; POLYCHROMASIA Occasional
[2020-04-21 17:08] LABS: HYPOCHROMASIA 1+
[2020-04-21 17:09] LABS: PLATELET ESTIMATE DECREASED; POIKILOCYTOSIS 1+
--- NOTE | 2020-04-21 18:39 | NUR ---
PATIENT ARRIVED TO UNIT AT 1620. ALERT AND ORIENTED X4. VSS ON 2 LITERS 02. COMPLAINT OF BLE PAIN ADDRESSED WITH TRAMADOL. CELLULITIS AND WEEPING WOUNDS TO BLE, PHOTOS TAKEN AND PLACED IN CHART. NO OTHER COMPLAINTS. FALL PRECAUTIONS IN PLACE. CALL LIGHT WITHIN REACH. HOURLY ROUNDS COMPLETED. WILL CONTINUE PLAN OF CARE.
[2020-04-21 20:17] VITALS: BP 109/61
[2020-04-22 04:18] LABS: HEMATOCRIT 35.1 % (37.0-47.0); MCH 27.7 pg (26.0-34.0); MCHC 31.5 g/dL (28.0-37.0); MPV 8.2 fl. (7.2-11.1); RBC 3.99 mil/uL (4.20-5.00); RDW-CV 32.6 % (10.5-14.5); WBC 6.8 thou/uL (4.0-11.0)
[2020-04-22 04:45] LABS: CALCIUM 8.7 mg/dL (8.5-10.1); CREATININE 3.7 mg/dL (0.6-1.3); MAGNESIUM 2.8 mg/dL (1.8-2.4); POTASSIUM 4.9 mmol/L (3.5-5.1)
--- NOTE | 2020-04-22 06:08 | NUR ---
PATIENT ALERT AND ORIENTED. REPORTED SOA DURING DAY SHIFT. KEPT HOB ELEVATED. SHE DID NOT GET UP ALL SHIFT DID NOT ASK TO. USES BEDPAN FOR URINATION AND WEARS BRIEFS FOR INCONTINENCE. SKIN IS GOOD OTHER THAN LOWER EXTREMETIES. SHE DID REQUEST A HYDROCODONE AT BEDTIME AND WAS ABLE TO SLEEP THROUGH NIGHT AFTERWARDS. SHE RECEIVED ALL MEDS AND FLUIDS SCHEDULED. WOUNDS ARE SLIGHTLY WEEPING AND RED AND SWOLLEN ON BOTH LEGS. CONSULT FOR WOUND CARE IN PLACE. ON 2L - O2. WILL CONTINUE TO FOLLOW PLAN OF CARE.
[2020-04-22 07:55] VITALS: BP 103/53
--- NOTE | 2020-04-22 12:02 | NUR ---
Admission CM note: Information from patient who lives alone in senior apartment.There are no stairs. Handles her own finances. She is a . She still drives and is independent w/ ADLs but has groceries delivered by [employer] during the winter and since . Prepares her own meals. DME at home: [employer]. [employer]. HH no hx SNF-[facility] and if needed would return. Presently on O2 but doesn't not have O2 at home.
--- NOTE | 2020-04-22 13:08 | 2DMMODE ---
[place] [address] 2 D/M-MODE ECHOCARDIOGRAM Name: RYAN WYLIE Room: [address] ADM IN .Meet.#: [id number] Admission: 04/21/20 Attend Phys: Livia Alcala, Discharge: Date of : 40 Date of Service: 04/22/20 1308 Report #: [id number] THIS REPORT FOR: cc: Mark Glaser MD, David L. MD Holkins, John M. MD [facility] ~ APPROVED REPORT Study performed: 04/22/2020 10:59:38 EXAM: Comprehensive 2D, Doppler, and color-flow Echocardiogram Patient Location: In-Patient Room #: [facility] Status: routine BSA: 1.61 HR: 64 bpm BP: 103/53 mmHg Rhythm: NSR Other Information Study Quality: Good Indications edema 2D Dimensions IVSd: 12.43 (7-11mm) LVOT Diam: 16.31 (18-24mm) LVDd: 40.82 mm PWd: 11.53 (7-11mm) Ascending Ao: 28.69 (22-36mm) LVDs: 24.97 (25-40mm) Aortic Root: 27.62 mm Volumes Left Atrial Volume (Systole) LA ESV Index: 62.00 mL/m2 Aortic Valve AoV Peak Wojciech.: 3.88 m/s AO Peak Gr.: 60.17 mmHg LVOT Max P.76 mmHg AO Mean Gr.: 35.85 mmHg LVOT Mean P.92 mmHg LVOT Max V: 0.66 m/s AO V2 VTI: 101.31 cm LVOT Mean V: 0.45 m/s NICOLE (VTI): 0.34 cm2 LVOT V1 VTI: 16.36 cm AI Baca: 1.84 m/s2 [place] [address] 2 D/M-MODE ECHOCARDIOGRAM Name: RYAN WYLIE Room: [address] IN .R.#: [id number] Admission: 04/21/20 Attend Phys: Livia Alcala, Discharge: Date of : 40 Date of Service: 04/22/20 1308 Report #: [id number] AI PHT: 514.42 ms Mitral Valve E/A Ratio: 2.24 MV Decel. Time: 166.58 ms MV E Max Wojciech.: 1.23 m/s MV PHT: 48.31 ms MVA (PHT): 4.55 cm2 TDI E/Lateral E': 12.30 E/Medial E': 15.38 Medial E' Wojciech.: 0.08 m/s Lateral E' Wojciech.: 0.10 m/s Pulmonary Valve PV Peak Wojciech.: 0.84 m/s PV Peak Gr.: 2.82 mmHg Tricuspid Valve RAP Estimate: 5.00 mmHg TR Peak Gr.: 27.85 mmHg RVSP: 32.00 mmHg PA Pressure: 32.00 mmHg Left Ventricle The left ventricle is normal size. There is paradoxical septal motion in systole. Borderline concentric left ventricular hypertrophy. Left ventricular systolic function is borderline. LVEF is 50%. Right Ventricle Right ventricle is dilated. The right ventricular systolic function is normal. Pacemaker lead is present in the right ventricle. Atria Left atrium is moderately dilated. Right atrium is moderately dilated. Aortic Valve Moderate aortic valve sclerosis. Bioprosthetic aortic valve is present. Mild aortic regurgitation. Moderate to severe aortic stenosis. Mitral Valve There is mitral annular calcification. Mild mitral regurgitation. No evidence of mitral valve stenosis. Tricuspid Valve The tricuspid valve is normal in structure[place] [address] 2 D/M-MODE ECHOCARDIOGRAM Name: RYAN WYLIE Room: [address] IN [facility]#: [id number] Admission: 04/21/20 Attend Phys: Livia Alcala, Discharge: Date of : 40 Date of Service: 04/22/20 1308 Report #: [id number] regurgitation. Mild pulmonary hypertension. Pulmonic Valve The pulmonary valve is normal in structure. Trace pulmonic regurgitation. Great Vessels The aortic root is normal in size. IVC is normal in size and collapses >50% with inspiration. Pericardium There is no pericardial effusion. Left pleural effusion. <Conclusion> The left ventricle is normal size. Borderline concentric left ventricular hypertrophy. Left ventricular systolic function is borderline. LVEF is 50%. Right ventricle is dilated. Left atrium is moderately dilated. Right atrium is moderately dilated. Moderate aortic valve sclerosis. Mild aortic regurgitation. Moderate to severe aortic stenosis. There is mitral annular calcification. Mild mitral regurgitation. No evidence of mitral valve stenosis. The tricuspid valve is normal in structure. Moderate tricuspid regurgitation. Mild pulmonary hypertension. IVC is normal in size and collapses >50% with inspiration. There is no pericardial effusion. There is paradoxical septal motion in systole. Pacemaker lead is present in the right ventricle. Bioprosthetic aortic valve is present. <ELECTRONICALLY SIGNED> By: Kain Arroyo MD, FACC 04/22/20 1308 1308 1308 Kain Arroyo MD, FACC /INF
--- NOTE | 2020-04-22 13:12 | EKG ---
[place] [address] ELECTROCARDIOGRAM REPORT Name: RYAN WYLIE Room: [address] ADM IN M.R.#: [id number] Admission: 04/21/20 Attend Phys: Livia Alcala, Discharge: Date of : 40 Date of Service: 04/21/20 1436 Report #: [id number] THIS REPORT FOR: //name// [facility] ED Test Date: 2020-04-21 Test Time: 14:36:10 Pat Name: RYAN WYLIE Department: Room: [facility] Gender: F Millwright: GREG : 1940 Requested By: Stan Rice Order Number: [id number] MD: Kain Arroyo Measurements Intervals [place] Rate: 61 P: 0 AK: 280 QRS: 131 QRSD: 138 T: 236 QT: 492 QTc: 496 Interpretive Statements Ventricular-paced rhythm No further analysis attempted due to paced rhythm Compared to ECG 03/02/2020 13:03:10 No significant changes Electronically Signed On 04-22-2020 13:12:46 CDT by Kain Arroyo [email or web address] <ELECTRONICALLY SIGNED> By: Kain Arroyo MD, [facility] 04/22/20 1312 1436 1436 Kain Arroyo MD, [facility] /EPI
--- NOTE | 2020-04-22 13:51 | NUR ---
Nutrition: Pt admitted with cellulitis on BLE. Seen for wound risk. RD saw pt in February for low Na diet educ. Spoke with pt today: she is still eating low Na and "no sugar," per pt. She stated her appetite is as it usually is. Her wt wnet from 170s in March to146# today. She knows it is d/t fluid. RX: vanc, statin, MVI, zn, carvedilol. H/o CHF, afib, pacemaker, HTN. Regular diet is ordered - would recommend Low Na diet. Labs: renal FXN altered, BG 116, albumin 3.9. No other nutrition interventions at this time. Consider mild risk.
--- NOTE | 2020-04-22 14:33 | NUR ---
CHF Medication Education Counseling: Orders in for patient to receive medication counseling for previous diagnosis of CHF. After introduction had a long discussion with patient about medications for CHF which include carvedilol, bumetanide and spironolactone. Discussed how each of the medications work, benefits of continuation, possible side effects, etc. Answered all questions and gave information sheet about medications discussed. Instructed to contact pharmacy if any further questions arise in future.
[2020-04-22 15:43] VITALS: BP 103/47
--- NOTE | 2020-04-22 18:23 | NUR ---
PATIENT RESTING IN BED. PATIENT IS BEDREST. PATIENT HAD COMPLAINTS OF PAIN WITH DRESSING CHANGE, TREATED ADEQUATELY WITH HYDROCODONE. PATIENT HAS FAIR APPETITE. PATIENT DENIES ANY NEEDS AT THIS TIME. CALL LIGHT WITHIN REACH.
[2020-04-22 20:00] VITALS: BP 122/77
[2020-04-22 22:35] LABS: URINE BILIRUBIN NEGATIVE (Negative); URINE BLOOD 1+ (Negative); URINE CLARITY CLEAR; URINE COLOR YELLOW; URINE GLUCOSE-RANDOM NEGATIVE (Negative); URINE KETONES NEGATIVE (Negative); URINE LEUKOCYTES-REFLEX 1+ (Negative); URINE NITRITE-REFLEX NEGATIVE (Negative); URINE PROTEIN NEGATIVE (Negative); URINE UROBILINOGEN 0.2 E.U./dl (0.2-1.0)
[2020-04-22 22:50] LABS: SQUAMOUS 4-10 Moderate /LPF (0-3); URINE WBC-REFLEX >25 Many /HPF (0-5)
[2020-04-22 22:51] LABS: CRYSTALS None Seen /LPF (None Seen); HYALINE CASTS 4-10 Moderate /LPF (None Seen); MUCUS 0-3 Light strn/LPF (None Seen); URINE RBC 3-10 Few /HPF (0-2); YEAST-REFLEX Present (None Seen)
[2020-04-23 04:28] LABS: HEMATOCRIT 34.2 % (37.0-47.0); HEMOGLOBIN 10.8 gm/dL (12.0-15.0); MCH 27.9 pg (26.0-34.0); MCHC 31.7 g/dL (28.0-37.0); MPV 8.5 fl. (7.2-11.1); RBC 3.89 mil/uL (4.20-5.00); RDW-CV 32.2 % (10.5-14.5); WBC 5.8 thou/uL (4.0-11.0)
[2020-04-23 05:06] LABS: ALBUMIN 3.1 g/dL (3.4-5.0); CALCIUM 8.3 mg/dL (8.5-10.1); CREATININE 3.9 mg/dL (0.6-1.3); MAGNESIUM 2.8 mg/dL (1.8-2.4); TOTAL PROTEIN 6.6 g/dL (6.4-8.2)
--- NOTE | 2020-04-23 07:35 | NUR ---
PT A&OX4, ON 2L NC, VSS, PAIN MEDS REQUESTED AND GIVEN ORDERED, PT SLEPT WELL. HOURLY ROUNDINGS COMPLETE. REPORT GIVEN AND CARE TRANSFERED TO DAY SHIFT NURSE AT APPROX 0716.
--- NOTE | 2020-04-23 09:39 | NUR ---
WOUND NURSE: PATIENT SEEN TO ADDRESS BLE WOUNDS 2ND TO PERIPHERAL EDEMA. RIGHT LOWER LEG RUPTURED BULLAE FOLLOWS: RIGHT ANTERIOR: 10.3 X 8.0 X 0.1 CM. RIGHT DISTAL MEDIAL: 1.5 X 3.0 X 0.1 CM. RIGHT PROXIMAL LATERAL: 0.5 X 0.7 X 0.1 CM. RIGHT DISTAL LATERAL: 0.5 X 0.5 X 0.1 CM. LEFT LOWER LE X 7.5 X 0.1 CM. LARGE CLEAR YELLOW DRAINAGE FROM WOUNDS. BLE WITH RUBOR, 2 TO 3 PLUS EDEMA, AND ECCHYMOSIS. BILATERAL POSTERIOR PULSES WERE BIPHASIC. LEFT DORSALIS PEDIS MONOPHASIC. RIGHT DORSALIS PEDIS, UNABLE TO IDENTIFIY. WOUNDS CLEANSED WITH WOUND CLEANSER AND GAUZE. APPLIED MOISTURIZING LOTION TO INTACT SKIN. APPLIED XEROFORM GAUZE UNDER ABD'S TO WOUNDS, WRAPPED WITH KERLEX ROLL GAUZE. BLE ELEVATED IN RECLINER WITH AN ADDITIONAL PILLOW TO OBTAIN 15 DEGREE INCLINE TO HELP CONTROL SWELLING. WILL WAIT FOR VASCULAR PHYSICIAN TO DECIDE IF PATIENT CAN BE WRAPPED WITH VINNIE WRAPS. PATIENT INSTRUCTED REGARDING BASIC PHYSIOLOGY OF THE WOUNDS, MEASURES TO PROMOTE HEALING, AND INPORTANCE OF DIET WITH INCREASED PROTEIN, VITAMIN C, AND ZINC. PATIENT STATES SHE UNDERSTANDS.
--- NOTE | 2020-04-23 10:17 | CON ---
[address] [address] CONSULTATION Name: RYAN WYLIE Room: [address] ADM IN M.R.#: [id number] Admission: 04/21/20 Attend Phys: Livia Alcala MD Discharge: Date of : 40 Report #: [id number] THIS REPORT FOR: //name// cc: Mark Glaser MD, David L. MD ~ THIS REPORT FOR: //name// CC: Mark Alcala NEPHROLOGY CONSULTATION CONSULTING PHYSICIAN: Livia Alcala MD REASON FOR CONSULTATION: Acute kidney injury. HISTORY OF PRESENT ILLNESS: A 79-year-old female with a history of stage 4 chronic kidney disease, followed by Dr. Suarez as an outpatient, who was admitted with bilateral lower extremity cellulitis, currently on antibiotics and being seen by Surgery for possible debridement. Currently, appears to be comfortable, has no shortness of breath, has no complaints. REVIEW OF SYSTEMS: Constitutional, psych, heme, eyes, ENT, respiratory, cardiac, GI, , endocrine, all negative except as documented above. PAST MEDICAL HISTORY: Chronic kidney disease stage 4, history of diastolic dysfunction, history of dyslipidemia, hypertension, pacemaker. SOCIAL HISTORY: No tobacco. FAMILY HISTORY: Not pertinent in this 79-year-old female. CURRENT MEDICATIONS: Reviewed. PHYSICAL EXAMINATION: VITAL SIGNS: Blood pressure is 103/53, pulse 62, respirations 14, temperature 36.4. GENERAL: No acute distress. EYES: Open. EARS: Externally normal. NECK: Supple. CARDIOVASCULAR: Regular rate. LUNGS: No crackles. ABDOMEN: Soft. MUSCULOSKELETAL: Bilateral lower extremity cellulitis. PSYCHIATRIC: Awake, [place] [address] CONSULTATION Name: RYAN WYLIE Room: [address] IN .R.#: [id number] Admission: 04/21/20 Attend Phys: Livia Alcala MD Discharge: Date of : 40 Report #: [id number] LABORATORY DATA: White cell count 6.8, hemoglobin 11, platelets 75. Sodium 139, potassium 4.9, chloride 103, bicarbonate 26, BUN 83, creatinine 3.7, glucose 116, calcium 8.7, magnesium 2.8. ASSESSMENT: 1. Acute kidney injury with an admission creatinine of 3.9, 03/26/2020 creatinine was 2.6 and during that hospital stay, it was as high as 4.4. Renal ultrasound does not show anything acute. Just changes consistent with chronic kidney disease. This is also in the setting of bilateral lower extremity cellulitis. 2. Chronic kidney disease stage 4, baseline creatinine appears to be around 2.4-2.5, it was 2.6 on 03/26/2020. She is followed by Dr. Suarez as an outpatient. 3. Thrombocytopenia, defer to Internal Medicine. 4. Diastolic heart failure. 5. Bilateral lower extremity cellulitis. 6. Diabetes type 2. PLAN: 1. Creatinine is slightly better at 3.7 today. Caution on vancomycin use in the setting of renal insufficiency, on antibiotics per Internal Medicine. 2. Hypermagnesemia. Magnesium 2.8. We will discontinue milk of magnesia. 3. We will suggest renally dosing Ultram. We will consult pharmacy. 4. Check labs again in the a.m. Thank you for requesting my opinion in the care and management of this patient. <ELECTRONICALLY SIGNED> By: Tammy Dubois MD 04/23/20 1017 1505 [id number] Dubois MD /nt
[2020-04-23 15:41] VITALS: BP 114/52
--- NOTE | 2020-04-23 17:23 | NUR ---
Pt AOx4. VSS. No c/o pain this shift. Pt is up with SBA with gb and walker. Working with PT today. Tolerating IV antibiotics. Wound dressing changed to bilat lower extremities with wound care nurse. Hourly rounding complete will continue to monitor
[2020-04-23 20:00] VITALS: BP 107/51
[2020-04-24 04:34] LABS: ALBUMIN 3.1 g/dL (3.4-5.0); CALCIUM 8.5 mg/dL (8.5-10.1); CREATININE 4.1 mg/dL (0.6-1.3); PHOSPHORUS* 6.2 mg/dL (2.5-4.9); POTASSIUM 5.4 mmol/L (3.5-5.1)
--- NOTE | 2020-04-24 06:33 | NUR ---
Alert and oriented x 4. Vitals are stable. Dressings to lower extremities are dry and intact. She had on O2 at 1L n/c and O2 sat was 100%. She has been voiding per bedpan this shift. She wanted her O2 turned up this am but she had a good sat of 99% I talked to RT then to her and explained that they are trying to wean her off the O2 to go home. She is doing well. She slept well this shift.
[2020-04-24 06:49] LABS: HEMATOCRIT 36.3 % (37.0-47.0); HEMOGLOBIN 11.5 gm/dL (12.0-15.0); MCH 27.9 pg (26.0-34.0); MCHC 31.7 g/dL (28.0-37.0); MCV 88.1 fL (80.0-100.0); MPV 8.6 fl. (7.2-11.1); RBC 4.12 mil/uL (4.20-5.00); WBC 5.8 thou/uL (4.0-11.0)
[2020-04-24 07:02] LABS: ALBUMIN 3.2 g/dL (3.4-5.0); CALCIUM 8.3 mg/dL (8.5-10.1); CREATININE 3.8 mg/dL (0.6-1.3); POTASSIUM 5.3 mmol/L (3.5-5.1); TOTAL BILIRUBIN 0.9 mg/dL (<0.1-1.0); TOTAL PROTEIN 6.9 g/dL (6.4-8.2)
[2020-04-24 07:25] VITALS: BP 110/52
--- NOTE | 2020-04-24 10:49 | NUR ---
PT.TO DISCHARGE TODAY TO HOME WITH HOME HEALTH. ASKED PT.WHO SHE USED FOR HOME HEALTH, SHE SAID SHE WAS ALREADY ON SERVICE. SHE KEPT SAYING [facility]. SHE WAS CHECING HER PHONE. JAMES CALLED [facility] AND THEY CONFIRMED PT.HAD ISABELLA DIAS AT DISCHARGE. JAMES NOTIFIED AMISHA/ISABELLA DIAS [phone]. WILL FAX DISCHARGE ORDERS AND H&P TO [phone].
--- NOTE | 2020-04-24 11:33 | NUR ---
PER MARIA ISABEL, PT.MAY NOT GO HOME TODAY. NEPHROLOGY AND HEMATOLOGY HAS NOT SIGNED OFF YET. NOTIFIED PT. SHE CALLED HER BROTHR AND CM EXPLAINED WHY SHE MIGHT NOT DISCHARGE TODAY. HE WILL BE HER RIDE HOME. CM NOTIFIED AMISHA/ISABELLA . FAXED REFERRAL INFORMATION TO HIM. AT DISCHARGE FAX DISCHARGE ORDERS AND MED LIST. PT.WILL NEED WOUND CARE CENTER APPT. [facility]-PH-[phone]/FAX [phone]
[2020-04-24] MEDS ORDERED: KEFLEX250 M1 PO (12:36)
--- NOTE | 2020-04-24 16:28 | NUR ---
PT REMAINED ALERT AND ORIENTED. PT RESTING IN BED. DRESSING CHANGED PER ORDERS, PICTURES IN CHART. FALL RISK PRECAUTIONS IN PLACE. HOURLY ROUNDING COMPLETED. WILL CONTINUE TO MONITOR.
[2020-04-24 16:53] VITALS: BP 110/66
[2020-04-24 20:00] VITALS: BP 116/63
[2020-04-25 04:12] LABS: CALCIUM 8.5 mg/dL (8.5-10.1); CREATININE 3.7 mg/dL (0.6-1.3); MAGNESIUM 3.1 mg/dL (1.8-2.4); POTASSIUM 4.9 mmol/L (3.5-5.1)
--- NOTE | 2020-04-25 04:24 | NUR ---
PT A&O X 4, VSS ON RA. MEDS GIVEN ORDERED. DENIED PAIN. DRESSINGS CLEAN AND INTACT. UP TO BSC WITH MINIMUM ASSIST. PT HAD A BM THIS SHIFT. CALL LIGHT WITHIN REACH. WILL CONTINUE TO MONITOR.
[2020-04-25 07:30] VITALS: BP 105/48
--- NOTE | 2020-04-25 14:00 | NUR ---
DRESSING CHANGES DONE TO CHRISSY LOWER LEGS. AREA'S PINK WITH GRANULATION TISSUE. OUT OF XEROFOAM DRESSING USED VASLINE GAUZE AND OIL EMMERSION DRESSING. WRAPPED WITH KERLIX AND VINNIE WRAPS.
[2020-04-25 15:25] VITALS: BP 105/48
--- NOTE | 2020-04-25 16:39 | NUR ---
pt verbalizes understanding to discharge instructions. patient discharged to home by son. taken out via w/c.
== END 2020-04-25 16:39 | disposition home health service (06) | DRG 602 ==
LOC: M.TBA-ER 14:54 → M.ORTHSURG 14:54
PROVIDERS: Family Medicine; Internal Medicine Nephrology; Surgery; ADMIT Internal Medicine; ATTEND Internal Medicine
DX: L03.116 Cellulitis of left lower limb (principal); R65.11 Systemic inflammatory response syndrome (SIRS) of non-infectious origin with acute organ dysfunction; N17.0 Acute kidney failure with tubular necrosis; I13.0 Hypertensive heart and chronic kidney disease with heart failure and stage 1 through stage 4 chronic kidney disease, or unspecified chronic kidney disease; I50.32 Chronic diastolic (congestive) heart failure; N18.4 Chronic kidney disease, stage 4 (severe); L97.828 Non-pressure chronic ulcer of other part of left lower leg with other specified severity; L97.818 Non-pressure chronic ulcer of other part of right lower leg with other specified severity; L03.115 Cellulitis of right lower limb; I87.8 Other specified disorders of veins; I35.1 Nonrheumatic aortic (valve) insufficiency; D69.6 Thrombocytopenia, unspecified; I48.91 Unspecified atrial fibrillation; I89.0 Lymphedema, not elsewhere classified; I25.10 Atherosclerotic heart disease of native coronary artery without angina pectoris; E83.41 Hypermagnesemia; E83.39 Other disorders of phosphorus metabolism; E78.5 Hyperlipidemia, unspecified; E11.22 Type 2 diabetes mellitus with diabetic chronic kidney disease; G47.00 Insomnia, unspecified; J45.909 Unspecified asthma, uncomplicated; Z20.828 Contact with and (suspected) exposure to other viral communicable diseases; Z98.891 History of uterine scar from previous surgery; Z87.891 Personal history of nicotine dependence; Z95.0 Presence of cardiac pacemaker; Z90.49 Acquired absence of other specified parts of digestive tract; Z79.01 Long term (current) use of anticoagulants; Z79.899 Other long term (current) drug therapy; Z95.1 Presence of aortocoronary bypass graft

== ENCOUNTER → 2020-04-28 | Outpatient (CLI) | payer MEDICARE, OTHER ==
[~2020-04-28] MED LIST changes: +KEFLEX250 M1 PO
== END ==
LOC: M.WC 04:17
PROVIDERS: ATTEND Emergency Medicine Undersea and Hyperbaric Medicine
DX: I70.238 Atherosclerosis of native arteries of right leg with ulceration of other part of lower leg (principal); I70.248 Atherosclerosis of native arteries of left leg with ulceration of other part of lower leg; L97.811 Non-pressure chronic ulcer of other part of right lower leg limited to breakdown of skin; L97.821 Non-pressure chronic ulcer of other part of left lower leg limited to breakdown of skin; S80.821D Blister (nonthermal), right lower leg, subsequent encounter; E78.00 Pure hypercholesterolemia, unspecified; I87.2 Venous insufficiency (chronic) (peripheral); I89.0 Lymphedema, not elsewhere classified; I13.0 Hypertensive heart and chronic kidney disease with heart failure and stage 1 through stage 4 chronic kidney disease, or unspecified chronic kidney disease; I50.9 Heart failure, unspecified; N18.9 Chronic kidney disease, unspecified; I48.91 Unspecified atrial fibrillation; J45.909 Unspecified asthma, uncomplicated; F41.9 Anxiety disorder, unspecified; Z86.73 Personal history of transient ischemic attack (TIA), and cerebral infarction without residual deficits; X58.XXXD Exposure to other specified factors, subsequent encounter

== ENCOUNTER 2020-05-05 08:38 | Inpatient (IN) | payer MEDICARE, OTHER ==
[~2020-05-05] VITALS: Ht 149.9 cm; Wt 71.7 kg
[2020-05-05 08:39] VITALS: BP 138/69
[2020-05-05 09:08] LABS: ABSOLUTE BASOPHILS 0.1 thou/uL (0.0-0.2); ABSOLUTE EOSINOPHILS 0.1 thou/uL (0.0-0.7); ABSOLUTE LYMPHOCYTES 0.6 thou/uL (0.8-5.3); ABSOLUTE MONOCYTES 0.7 thou/uL (0.0-1.2); ABSOLUTE NEUTROPHILS 6.1 thou/uL (1.6-8.1); BASOPHILS 1.1 %; EOSINOPHILS 0.9 %; HEMOGLOBIN 11.7 gm/dL (12.0-15.0); LYMPHOCYTES 7.7 %; MCH 28.5 pg (26.0-34.0); MCHC 31.8 g/dL (28.0-37.0); MCV 89.8 fL (80.0-100.0); MONOCYTES 9.8 %; MPV 8.4 fl. (7.2-11.1); NUCLEATED RBCS 0 /100WBC; PLATELET COUNT* 75 thou/uL (150-400); POLYS 80.5 %; RBC 4.12 mil/uL (4.20-5.00); RDW-CV 28.7 % (10.5-14.5); WBC 7.6 thou/uL (4.0-11.0)
[2020-05-05 09:20] LABS: ANION GAP 9 mmol/L (7-16); APTT 26.6 Seconds (25.0-31.3); BUN 80 mg/dL (7-18); CALCIUM 8.1 mg/dL (8.5-10.1); CHLORIDE 105 mmol/L (98-107); CO2 25 mmol/L (21-32); GLUCOSE 108 mg/dL (70-99); INR 1.2; POTASSIUM 5.1 mmol/L (3.5-5.1); PROTIME 12.4 Seconds (9.20-11.50); SODIUM 139 mmol/L (136-145)
[2020-05-05 09:33] LABS: OVALOCYTES 1+; PLATELET ESTIMATE DECREASED; SCHISTOCYTES 1+
[2020-05-05 09:34] LABS: ANISOCYTOSIS 3+
[2020-05-05 09:46] LABS: ALBUMIN 3.1 g/dL (3.4-5.0); ALKALINE PHOSPHATASE 182 U/L (46-116); LIPASE 80 U/L (73-393); MAGNESIUM 2.8 mg/dL (1.8-2.4); SGOT 22 U/L (15-37); SGPT 18 U/L (30-65); TOTAL BILIRUBIN 0.8 mg/dL (<0.1-1.0); TOTAL PROTEIN 6.8 g/dL (6.4-8.2)
[2020-05-05 10:04] LABS: NT-PRO BRAIN NAT PEPTIDE > 35000 pg/mL (<300)
[2020-05-05 15:45] VITALS: BP 120/57
[2020-05-05 16:10] VITALS: BP 113/64
--- NOTE | 2020-05-05 16:28 | EKG ---
[place] [address] ELECTROCARDIOGRAM REPORT Name: RYAN WYLIE Room: [address] ADM IN M.R.#: [id number] Admission: 05/05/20 Attend Phys: Dk Oseguera Discharge: Date of : 40 Date of Service: 05/05/20 0848 Report #: [id number] THIS REPORT FOR: //name// [facility] ED Test Date: 2020-05-05 Test Time: 08:48:18 Pat Name: RYAN WYLIE Department: Room: [facility] Gender: F Patient Appointment Coordinator: T6DS : 1940 Requested By: Stan Rice Order Number: [id number] MD: Kain Arroyo Measurements Intervals [place] Rate: 66 P: 0 MA: 164 QRS: 162 QRSD: 130 T: 17 QT: 444 QTc: 466 Interpretive Statements Ventricular-paced complexes No further analysis attempted due to paced rhythm Compared to ECG 04/21/2020 14:36:10 No significant changes Electronically Signed On 05-05-2020 16:28:40 CDT by Kain Arroyo [email or web address] <ELECTRONICALLY SIGNED> By: Kain Arroyo MD, [facility] 05/05/20 1628 0848 0848 Kain Arroyo MD, [facility] /EPI
[2020-05-05] MEDS ORDERED: CEPHALEXIN 250250 M1 PO (17:02)
[2020-05-05] MEDS ORDERED: POTASSIUM20 PO (17:04)
[2020-05-05 20:00] VITALS: BP 125/59
[2020-05-06] VITALS: BP 111/48
--- NOTE | 2020-05-06 02:01 | NUR ---
REPORT FROM LIO. PT ADMIT TODAY. CHRISSY LEG WRAPS. PT REFUSING TO LET NURSE UNWRAP AND PICTURE. PT STATES SHE HAS BEEN SEEN IN WOUND CLINIC AND HER SKIN COULD COME OFF WITH ERICK.ALMITA WOUND NURSE CONSULTED. PT HAVING PAIN IN LEGS. PT NORMALY TAKES TYLENOL AT HOME. NOTIFIED. TYLENOL ORDERED/GIVE.ALSO PRN MEDS ORDERED. TELEMETRY SHOWS VPACED WITH UNDERLYING AFIB. PT Q 2 HRS TURN. PT TURNING SELF. VOIDING PER BP. WCTM
[2020-05-06 04:00] VITALS: BP 105/54
[2020-05-06 04:51] LABS: HEMATOCRIT 35.9 % (37.0-47.0); HEMOGLOBIN 11.4 gm/dL (12.0-15.0); MCH 28.3 pg (26.0-34.0); MCHC 31.7 g/dL (28.0-37.0); MCV 89.3 fL (80.0-100.0); MPV 8.5 fl. (7.2-11.1); NUCLEATED RBCS 0 /100WBC; PLATELET COUNT* 73 thou/uL (150-400); RBC 4.02 mil/uL (4.20-5.00); RDW-CV 27.7 % (10.5-14.5); WBC 3.8 thou/uL (4.0-11.0)
[2020-05-06 05:13] LABS: ALBUMIN 3.1 g/dL (3.4-5.0); CALCIUM 8.2 mg/dL (8.5-10.1); CREATININE 3.1 mg/dL (0.6-1.3); MAGNESIUM 2.7 mg/dL (1.8-2.4); POTASSIUM 5.8 mmol/L (3.5-5.1); TOTAL BILIRUBIN 0.7 mg/dL (<0.1-1.0); TOTAL PROTEIN 6.3 g/dL (6.4-8.2)
[2020-05-06 06:20] LABS: ABSOLUTE LYMPHOCYTES 0.3 thou/uL (0.8-5.3); ABSOLUTE NEUTROPHILS 3.5 thou/uL (1.6-8.1); ANISOCYTOSIS 2+; PLATELET ESTIMATE ADEQUATE
[2020-05-06 08:00] VITALS: BP 108/52
[2020-05-06 12:23] VITALS: BP 113/53
[2020-05-06 15:10] LABS: CALCIUM 8.4 mg/dL (8.5-10.1); CREATININE 3.3 mg/dL (0.6-1.3)
--- NOTE | 2020-05-06 15:45 | NUR ---
CM SPOKE TO THE PT TO DISCUSS HER HOME SITUATION, DISCHARGE PLANNING, AND TO INFORM OF THE ROLE OF CM. PT A&O, INDEPENDENT WITH ADL'S, AND DRIVES. PT LIVES ALONE IN A SR LIVING APT. PT INFORMS THAT HER SON IS HER SOURCE OF FAMILY SUPPORT. PT USES A ROLLER WALKER FOR MOBILITY. PT IS CURRENTLY ON-SERVICE WITH [facility] FOR NURSING, PT, AND PT, AND PLANS TO RESUME SERVICE WITH THEM AT D/C. CM SPOKE TO [facility] AND THEY AGREE TO ACCEPT THE PT AT D/C. CM WILL REMAIN AVAILABLE TO ASSIST AND FOLLOW NEEDED. [facility] PHONE: [phone] FAX: [phone]
[2020-05-06 16:12] LABS: URINE BILIRUBIN NEGATIVE (Negative); URINE BLOOD NEGATIVE (Negative); URINE CLARITY CLEAR; URINE COLOR YELLOW; URINE GLUCOSE-RANDOM NEGATIVE (Negative); URINE KETONES NEGATIVE (Negative); URINE LEUKOCYTES-REFLEX NEGATIVE (Negative); URINE NITRITE-REFLEX NEGATIVE (Negative); URINE PROTEIN NEGATIVE (Negative); URINE SPECIFIC GRAVITY 1.025 (1.005-1.030); URINE UROBILINOGEN 0.2 E.U./dl (0.2-1.0)
[2020-05-06 17:05] VITALS: BP 109/53
[2020-05-06 20:00] VITALS: BP 123/53
--- NOTE | 2020-05-06 20:32 | NUR ---
PT HAS RESTED T/O DAY. C/O PAIN TO BLE WHEN MOVED. REFUSED O/N TO HAVE DRESSINGS CHANGED. PT REPORTS DRESSING CHANGED ON MONDAY THROUGH WOUND CENTER.PT EDUCATED ON IMPORTANCE OF ASSESSING WOUNDS AND THAT NURSING IS CAPABLE OF ADRESSING PTS WOUNDS AND DOCUMENTING.WOUND NURSE CONSULTED 05/05. AWAITING NURSE TO ASSESS AND PROVIDE ORDERS ON WOUNDS. ALCANTARA CATHETER INSERTED PER ORDER,UA OBTAINED. PT HAS BEEN ABLE TO TOLERATE FLUID RESTRICTION. CLWR.WCTM
--- NOTE | 2020-05-06 23:08 | NUR ---
PT ALERT ORIENTED. IN BED. Q 2 HRS TURN. TELEMETRY SHOWS VPACED. GENERALIZED EDEMA. LASIX QTT AT 7.5MLS/HR. ALCANTARA WITH CLEAR YELLOW. WCTM
[2020-05-07] VITALS: BP 99/45
--- NOTE | 2020-05-07 02:36 | NUR ---
PT RESTING QUIETLY. SLEEP STUDY IN PROGRESS.
[2020-05-07 05:30] LABS: ABSOLUTE LYMPHOCYTES 0.2 thou/uL (0.8-5.3); ABSOLUTE MONOCYTES 0.2 thou/uL (0.0-1.2); BASOPHILS 0.3 %; HEMATOCRIT 36.9 % (37.0-47.0); HEMOGLOBIN 11.9 gm/dL (12.0-15.0); LYMPHOCYTES 3.8 %; MCH 28.7 pg (26.0-34.0); MCHC 32.1 g/dL (28.0-37.0); MCV 89.3 fL (80.0-100.0); MONOCYTES 2.9 %; MPV 8.9 fl. (7.2-11.1); NUCLEATED RBCS 0 /100WBC; PLATELET COUNT* 65 thou/uL (150-400); RBC 4.14 mil/uL (4.20-5.00); RDW-CV 27.7 % (10.5-14.5); WBC 6.5 thou/uL (4.0-11.0)
[2020-05-07 05:45] LABS: CALCIUM 8.9 mg/dL (8.5-10.1); CREATININE 3.3 mg/dL (0.6-1.3); MAGNESIUM 2.6 mg/dL (1.8-2.4); PHOSPHORUS* 5.4 mg/dL (2.5-4.9); POTASSIUM 5.8 mmol/L (3.5-5.1)
[2020-05-07 08:03] VITALS: BP 119/53
--- NOTE | 2020-05-07 09:17 | NUR ---
ASSUMED CARE OF PT THIS AM AROUND 0715- MORTICIAN SUPPLIES SALES REPRESENTATIVE IN PLACE ORDERED, TRACING V-PACED WITH NOTED PACEMAKER- UPON ASSESSMENT PT NOTED TO BE RESTING IN BED- PT A&O 3-4 WITH FORGETFULLNESS NOTED- CONT OF BOWEL, ALCANTARA IN PLACE D/D CLEAR YELLOW URINE- SBA WITH TRANSFERS- PT UP TO BED SIDE RECLINER THIS AM WITH THERAPY- VSS, O2 SAT 97% ON 2L VIA NC- ABD SOFT/ROUND/NON-TENDER, BS X4 QUDAS- LAST BM REPORTED ON PRIOR SHIFT- THIGHS AND HIPS NOTED WITH EDEMA 2-3+- IV NOTED TO LEFT WRIST INTACT, IV LASIX INFUSSING PRESCRIBED- ORDERS NOTED FOR PERMANENT TUNNELED DIALYSIS PORT TO BE PLACED PER NEPHRO WITH ALL CONSULTS INITIATED AND PLANS TO BE PLACED TODAY-PT IS CURRENTLY NPO FOR PLANNED PROCEDURE- 1-2+ BLE EDEMA NOTED WITH LEG WRAPS IN PLACE- PT DENIES ANY C/O PAIN/DISCOMFORT AT THIS TIME- CALL LIGHT AND PERSONAL BELONGINGS WITH IN REACH- HOURLY ROUNDS IN PLACE R/T SAFETY/NEEDS- ALL NEEDS MET AT THIS TIME-WCTM
[2020-05-07 11:28] VITALS: BP 123/57
--- NOTE | 2020-05-07 11:47 | NUR ---
WOUND NURSE: PATIENT SEEN BY [facility] EARLIER TODAY AND SHE CHANGED DRESSSINGS TO BLE. PATIENT DID NOT HAVE OR PREVIOUSLY AGREE TO ALLOW PHOTOGRAPHS OF WOUNDS. DRESSINGS CHANGED BY THIS NURSE AND PHOTOGRAPHS AND MEASUREMENTS WERE TAKEN. REMOVED DRESSINGS, CLEANSED WITH WOUND CLEANSER AND GAUZE. APPLIED LOTION TO INTACT SKIN TOES TO KNEE. APPLIED XEROFORM GAUZE UNDER ABD TO EACH OF 2 WOUNDS, THEN WRAPPED TOES TO KNEE WITH KERLEX ROLL GAUZE UNDER LIGHT VINNIE WRAP. RIGHT PRETIBIAL BLISTER MEASURES 8.5 X 8.0 X 0.1 CM AND CONTAINS RED, PARTIAL THICKNESS TISSUE LOSS AND SMALL SEROUS DRAINAGE ON OLD DRESSING. LEFT LATERAL LEG MEASURES 10.0 X 5.0 X 0.1 CM, CONTAINS RED, PARTIAL THICKNESS TISSUE LOSS. BOTH WOUNDS WITH S/S OF HEALING. MINIMAL PERIPHERAL EDEMA PRESENT, PALPABLE PEDAL PULSES PRESENT ON DP, CAPILLARY REFILL IN TOES < 3 SEC, FEET AND LEGS ARE WARM. PATIENT'S BLE ELEVATED IN RECLINING CHAIR AND i ADDED ONE PILLOW TO IMPROVE ELEVATION. PATIENT INSTRUCTED ON MEASURES TO PROMOTE HEALING AND PREVENT COMPLICATIONS AND SHE STATES SHE UNDERSTANDS.
[2020-05-07 12:13] LABS: CHOLESTEROL 111 mg/dL (<200); HDL CHOLESTEROL 49 mg/dL (>40); LDL CHOLESTEROL 48 mg/dL (<100); SERUM ASSESSMENT Clear; TC:HDL 2.3 Ratio (Not establshd); TRIGLYCERIDE 73 mg/dL (<150); VLDL 15 mg/dL (<40)
--- NOTE | 2020-05-07 15:06 | EKG ---
[place] [address] ELECTROCARDIOGRAM REPORT Name: RYAN WYLIE Room: [address] ADM IN M.R.#: [id number] Admission: 05/05/20 Attend Phys: Dk Oseguera Discharge: Date of : 40 Date of Service: 05/07/20 1310 Report #: [id number] THIS REPORT FOR: //name// [facility] Test Date: 2020-05-07 Test Time: 13:10:26 Pat Name: RYAN WYLIE Department: Room: [address] Gender: F Special Projects Coordinator: : 1940 Requested By: Dk Oseguera Order Number: [id number] Joselito MD: Kain Arroyo Measurements Intervals [place] Rate: 60 P: 0 CA: 408 QRS: 131 QRSD: 134 T: -69 QT: 468 QTc: 468 Interpretive Statements Ventricular-paced complexes No further rhythm analysis attempted due to paced rhythm IVCD associated with RV pacing Since prior tracing, no significant interval change Electronically Signed On 05-07-2020 15:06:05 CDT by Kain Arroyo [email or web address] <ELECTRONICALLY SIGNED> By: aKin Arroyo MD, [facility] 05/07/20 1506 1310 1310 Kain rAroyo MD, [facility] /EPI
--- NOTE | 2020-05-07 17:47 | 2DMMODE ---
[place] [address] 2 D/M-MODE ECHOCARDIOGRAM Name: RYAN WYLIE Room: [address] ADM IN Meet#: [id number] Admission: 05/05/20 Attend Phys: Dk Oseguera Discharge: Date of : 40 Date of Service: 05/07/20 1746 Report #: [id number] THIS REPORT FOR: cc: Mark Glaser MD, David L. MD Liston, Michael J. MD [facility] ~ APPROVED REPORT Study performed: 05/07/2020 14:07:04 EXAM: Comprehensive 2D, Doppler, and color-flow Echocardiogram Patient Location: In-Patient Room #: [facility] Status: routine BSA: 1.67 HR: 68 bpm BP: 123/57 mmHg Rhythm: NSR Other Information Study Quality: Good Indications Congestive Heart Failure Dyspnea 2D Dimensions IVSd: 10.02 (7-11mm) LVOT Diam: 16.38 (18-24mm) LVDd: 40.67 mm PWd: 10.15 (7-11mm) Ascending Ao: 23.11 (22-36mm) LVDs: 26.85 (25-40mm) Aortic Root: 26.82 mm Volumes Left Atrial Volume (Systole) LA ESV Index: 52.00 mL/m2 Aortic Valve AoV Peak Wojciech.: 4.16 m/s AO Peak Gr.: 69.35 mmHg LVOT Max P.31 mmHg AO Mean Gr.: 40.83 mmHg LVOT Mean P.04 mmHg LVOT Max V: 0.76 m/s AO V2 VTI: 113.28 cm LVOT Mean V: 0.46 m/s NICOLE (VTI): 0.39 cm2 LVOT V1 VTI: 20.72 [place] [address] 2 D/M-MODE ECHOCARDIOGRAM Name: RYAN WYLIE Room: [address] IN .R.#: [id number] Admission: 05/05/20 Attend Phys: Dk Oseguera Discharge: Date of : 40 Date of Service: 05/07/20 1746 Report #: [id number] Kimball: 1.93 m/s2 AI PHT: 516.52 ms Mitral Valve E/A Ratio: 2.58 MV Decel. Time: 161.13 ms MV E Max Wojciech.: 1.41 m/s MV PHT: 46.73 ms MVA (PHT): 4.71 cm2 TDI E/Lateral E': 14.10 E/Medial E': 20.14 Medial E' Wojciech.: 0.07 m/s Lateral E' Wojciech.: 0.10 m/s Pulmonary Valve PV Peak Wojciech.: 0.86 m/s PV Peak Gr.: 2.96 mmHg Tricuspid Valve RAP Estimate: 15.00 mmHg TR Peak Gr.: 33.00 mmHg RVSP: 48.00 mmHg PA Pressure: 48.00 mmHg Left Ventricle The left ventricle is normal size. There is normal LV segmental wall motion. Mild concentric left ventricular hypertrophy. The left ventricular systolic function is normal. LVEF is 50-55%. Transmitral Doppler flow pattern suggests restrictive physiology. Right Ventricle The right ventricle is normal size. The right ventricular systolic function is normal. Pacemaker lead is present in the right ventricle. Atria Left atrium is moderately dilated. Right atrium is moderately dilated. Aortic Valve The Aortic valve is sclerotic. Bioprosthetic aortic valve is present. Mild aortic regurgitation. Moderate aortic stenosis. Mitral Valve There is mitral annular calcification. Mild mitral regurgitation. No evidence of mitral valve stenosis. [place] [address] 2 D/M-MODE ECHOCARDIOGRAM Name: RYAN WYLIE Room: [address] IN [facility]#: [id number] Admission: 05/05/20 Attend Phys: Dk Oseguera Discharge: Date of : 40 Date of Service: 05/07/20 1746 Report #: [id number] The tricuspid valve is normal in structure. Moderate tricuspid regurgitation. Moderate pulmonary hypertension. The RVSP is 50-55 mmHg. Pulmonic Valve The pulmonary valve is normal in structure. Trace pulmonic regurgitation. Great Vessels The aortic root is normal in size. IVC is dilated and collapses <50% with inspiration. Pericardium There is no pericardial effusion. Left pleural effusion. <Conclusion> The left ventricle is normal size. Mild concentric left ventricular hypertrophy. The left ventricular systolic function is normal. LVEF is 50-55%. Transmitral Doppler flow pattern suggests restrictive physiology. Left atrium is moderately dilated. Right atrium is moderately dilated. Pacemaker lead is present in the right ventricle. Bioprosthetic aortic valve is present. Mild aortic regurgitation. Moderate aortic stenosis. Mild mitral regurgitation. Moderate tricuspid regurgitation. Moderate pulmonary hypertension. The RVSP is 50-55 mmHg. IVC is dilated and collapses <50% with inspiration. Left pleural effusion. <ELECTRONICALLY SIGNED> By: Pa Estrella MD, FACC 05/07/20 1746 1746 1746 Pa Estrella MD, FACC /INF
[2020-05-07 18:13] VITALS: BP 152/74
[2020-05-07 20:30] VITALS: BP 109/68
[2020-05-08 00:49] VITALS: BP 103/51
[2020-05-08 02:06] LABS: HEPATITIS B SURFACE AG Negative (Negative)
--- NOTE | 2020-05-08 04:27 | NUR ---
PATIENT PROGRESSING TOWARDS GOALS: O2 SATURATION MAINTAINED >92% ON 2L O2 NC. EXPERIENCED SOME SHORTNESS OF BREATH ON EXERTION AFTER GETTING BACK TO BED FROM THE COMMODE BUT ABLE TO RECOVER WITH SLOW BREATHING AND RELAXATION. PATIENT DENIES PAIN AND DISCOMFORT. PLAN FOR DIALYSIS TODAY. ALCANTARA IN PLACE FOR I&O. CALL LIGHT WITHIN REACH
[2020-05-08 04:37] VITALS: BP 114/62
[2020-05-08 04:58] LABS: ABSOLUTE LYMPHOCYTES 0.2 thou/uL (0.8-5.3); ABSOLUTE MONOCYTES 0.4 thou/uL (0.0-1.2); ABSOLUTE NEUTROPHILS 6.7 thou/uL (1.6-8.1); BASOPHILS 0.4 %; HEMATOCRIT 36.5 % (37.0-47.0); HEMOGLOBIN 11.8 gm/dL (12.0-15.0); LYMPHOCYTES 2.2 %; MCH 28.9 pg (26.0-34.0); MCHC 32.2 g/dL (28.0-37.0); MCV 89.6 fL (80.0-100.0); MPV 8.5 fl. (7.2-11.1); NUCLEATED RBCS 0 /100WBC; PLATELET COUNT* 69 thou/uL (150-400); POLYS 91.4 %; RBC 4.08 mil/uL (4.20-5.00); RDW-CV 27.1 % (10.5-14.5); WBC 7.3 thou/uL (4.0-11.0)
[2020-05-08 05:22] LABS: POTASSIUM 5.7 mmol/L (3.5-5.1)
[2020-05-08 05:31] LABS: CALCIUM 8.7 mg/dL (8.5-10.1); CREATININE 3.6 mg/dL (0.6-1.3); MAGNESIUM 2.4 mg/dL (1.8-2.4); PHOSPHORUS* 6.6 mg/dL (2.5-4.9)
[2020-05-08 07:32] VITALS: BP 120/61
--- NOTE | 2020-05-08 08:23 | NUR ---
ASSUMED CARE OF PT THIS AM AROUND 07- ONLINE ADVERTISING MANAGER IN PLACE TRACING V-PACED WITH 1ST DEGREE- UPON ASSESSMENT PT NOTED TO BE RESTING IN BED- PT A&O X4- CONT OF BOWEL, ALCANTARA IN PLACE D/D MINIMAL HOLLY URINE- Q 2 HOUR TURNS- LCTA, DIMINISHED LUNG SOUNDS NOTED- DYSPNEA NOTED ON EXERTION- VSS, O2 SAT 98% ON 2L VIA NC- ABD SOFT/ROUND/NON-TENDER, BS X4 QUADS- PT REPORTS TO HAVE HAD BM THIS AM- 2+ HIP/THIGH EDEMA NOTED- +1 BLE WITH LEG WRAPS IN PLACE INDICATED- RIGHT CHEST DIALYSIS PORT NOTED WITH MINIMAL DRIED BLOOD, NO NEW BLOOD NOTED- LEFT WRIST IV C/D/I, SL- PT DENIES C/O PAIN/DISCOMFORT AT THIS TIME- CALL LIGHT AND PERSONAL BELONGINGS WITH IN REACH- PT TO BE GOING TO DIALYSIS SOON THIS AM- ALL NEEDS MET AT THIS TIME-WCTM
--- NOTE | 2020-05-08 10:05 | OP ---
[facility] [address] [place] [address] OPERATIVE REPORT Name: RYAN WYLIE Room: [address] IN M.R.#: [id number] Admission: 05/05/20 Attend Phys: Amanda Hardy Discharge: Date of : 40 Report #: [id number] THIS REPORT FOR: //name// cc: Mark Glaser MD, David L. MD ~ CC: Mark Oseguera DATE OF SERVICE: 05/07/2020 PREOPERATIVE DIAGNOSIS: Progressive renal failure. POSTOPERATIVE DIAGNOSIS: Progressive renal failure. OPERATION: 1. Ultrasound-guided access to right internal jugular vein. 2. Tunneled dialysis catheter placement. SURGEON: Benton Snow DO SUBSTANCE ABUSE SERVICES DIRECTOR: WESLEY Wise ANESTHESIA: Sedation local. ESTIMATED BLOOD LOSS: 25 mL. FLUIDS: Minimal. IMPLANTS: A 19 cm tunneled dialysis catheter in the right IJ. FINDINGS: Ultrasound demonstrated right internal jugular vein to be soft and compressible, suitable for access. The tip of the catheter was placed in the right atrium-SVC junction. Catheter aspirated and flushed well without resistance. CLINICAL HISTORY: The patient is a 79-year-old woman with progressive renal failure, is in need of dialysis access for initiation of hemodialysis. DESCRIPTION OF PROCEDURE: After informed consent was obtained, the patient was taken to the angio suite, placed on the angio bed in the supine position. She was administered sedation by the nurse at my discretion. Right neck was prepped and draped in usual sterile fashion. Full timeout was performed identifying correct patient and procedure. Next, skin and subcutaneous tissue of the right neck were anesthetized with lidocaine anesthetic. Using ultrasound guidance, the right internal jugular vein was identified, was accessed with micropuncture needle. These images were preserved. Using Seldinger technique, [place] [address] OPERATIVE REPORT Name: INESSARYAN Room: [address] IN [facility]#: [id number] Admission: 05/05/20 Attend Phys: Amanda Hardy Discharge: Date of : 40 Report #: [id number] passed under fluoroscopic guidance into the IVC. A skin incision was made in the neck and tract was serially dilated. The peel-away sheath was then placed over the wire. The wire and dilator were removed. The catheter was then positioned to the peel-away sheath and the tip of the right atrium-SVC junction, the sheath was removed. I then anesthetized the right chest wall, made a small stab incision, tunneled catheter in the right chest wall to ensure no kink or twist under fluoroscopic guidance. I then tailored it to length. Both ports were applied. Both ports aspirated and flushed well, packed with concentrated heparin. Catheter was then secured to the chest wall with 3-0 Monocryl suture. Neck incision was closed with Monocryl suture and sterile dressings were applied. All counts reported as correct x 2. The patient tolerated the procedure well and transferred to recovery in stable condition. The catheter may be used immediately for dialysis needs. <ELECTRONICALLY SIGNED> By: Benton Snow DO 05/08/20 1005 1639 1655Akrunal Snow DO /nt
[2020-05-08 11:46] VITALS: BP 118/73
--- NOTE | 2020-05-08 15:24 | NUR ---
CM SPOKE TO THE PT TO DISCUSS DISCHARGE PLANNING AND OUTPATIENT DIALYSIS AT D/C. PT IN AGREEMENT AND REQUEST DIALYSIS AT [facility] ([facility]). CM FAXED PT'S CLINICAL INFO TO [facility]. CM RECIEVED RETURN CALL FROM [facility] TO INFORM OF ACCEPTANCE OF PT AND TO INFORM THAT ACCEPTANCE INFO WILL BE FAXED TO CM. CM WILL REMAIN AVAILABLE TO ASSIST AND FOLLOW NEEDED.
[2020-05-08 15:48] VITALS: BP 102/52
[2020-05-08 20:00] VITALS: BP 116/57
[2020-05-09 00:22] VITALS: BP 116/51
[2020-05-09 04:00] VITALS: BP 117/56
[2020-05-09 04:25] LABS: ABSOLUTE LYMPHOCYTES 0.2 thou/uL (0.8-5.3); ABSOLUTE MONOCYTES 0.3 thou/uL (0.0-1.2); ABSOLUTE NEUTROPHILS 4.6 thou/uL (1.6-8.1); BASOPHILS 0.2 %; HEMATOCRIT 35.7 % (37.0-47.0); HEMOGLOBIN 11.7 gm/dL (12.0-15.0); LYMPHOCYTES 3.3 %; MCH 29.2 pg (26.0-34.0); MCHC 32.9 g/dL (28.0-37.0); MCV 88.7 fL (80.0-100.0); MONOCYTES 5.8 %; MPV 8.5 fl. (7.2-11.1); NUCLEATED RBCS 0 /100WBC; POLYS 90.7 %; RBC 4.02 mil/uL (4.20-5.00); RDW-CV 26.9 % (10.5-14.5); WBC 5.1 thou/uL (4.0-11.0)
[2020-05-09 04:36] LABS: CALCIUM 8.1 mg/dL (8.5-10.1); CREATININE 2.9 mg/dL (0.6-1.3); MAGNESIUM 2.4 mg/dL (1.8-2.4); POTASSIUM 5.1 mmol/L (3.5-5.1)
[2020-05-09 05:03] LABS: PLATELET COUNT* 43 thou/uL (150-400)
--- NOTE | 2020-05-09 05:20 | NUR ---
PT SLEPT MOST OF SHIFT. ASSESSMENT DOCUMENTED. MEDS GIVEN PER E-NOV. IV PATENT. NO REPORTS OF PAIN THIS SHIFT. ALCANTARA IN PLACE. WILL CONTINUE WITH PLAN OF CARE.
[2020-05-09 08:00] VITALS: BP 113/79
[2020-05-09 15:43] VITALS: BP 107/50
--- NOTE | 2020-05-09 18:12 | NUR ---
PT UP IN CHAIR MOST OF SHIFT. PT TO DIALYSIS THIS AFTERNOON. TOLERATING WELL. PT DENIES PAIN.
[2020-05-09 20:00] VITALS: BP 113/50
[2020-05-09 21:41] LABS: URINE BILIRUBIN NEGATIVE (Negative); URINE BLOOD 3+ (Negative); URINE COLOR YELLOW; URINE GLUCOSE-RANDOM NEGATIVE (Negative); URINE KETONES NEGATIVE (Negative); URINE LEUKOCYTES 2+ (Negative); URINE NITRITE NEGATIVE (Negative); URINE PROTEIN NEGATIVE (Negative); URINE SPECIFIC GRAVITY 1.025 (1.005-1.030); URINE UROBILINOGEN 0.2 E.U./dl (0.2-1.0)
[2020-05-09 21:42] LABS: SQUAMOUS 4-10 Moderate /LPF (0-3); URINE CLARITY HAZY; URINE WBC 0-5 Rare /HPF (0-5)
[2020-05-09 21:43] LABS: BACTERIA 1-9 Few /HPF (None Seen); CASTS None Seen /LPF (None Seen); CRYSTALS None Seen /LPF (None Seen); URINE RBC 3-10 Few /HPF (0-2); YEAST Present (None Seen)
[2020-05-09 23:37] VITALS: BP 127/61
[2020-05-10 04:04] VITALS: BP 130/58
[2020-05-10 04:48] LABS: HEMATOCRIT 36.8 % (37.0-47.0); HEMOGLOBIN 12.1 gm/dL (12.0-15.0); MCH 29.3 pg (26.0-34.0); MCHC 32.8 g/dL (28.0-37.0); MCV 89.2 fL (80.0-100.0); MPV 8.3 fl. (7.2-11.1); RBC 4.12 mil/uL (4.20-5.00); RDW-CV 26.6 % (10.5-14.5); WBC 6.9 thou/uL (4.0-11.0)
[2020-05-10 05:01] LABS: CALCIUM 7.6 mg/dL (8.5-10.1); CREATININE 2.3 mg/dL (0.6-1.3); POTASSIUM 4.5 mmol/L (3.5-5.1)
--- NOTE | 2020-05-10 07:28 | NUR ---
PATIENT HAS RESTED WELL THROUGHOUT MOST OF THE NIGHT. VSS ON 1.5 L 02 VIA NASAL CANNULA. MEDICATIONS GIVEN ORDERED AND CHARTED. ALCANTARA TO DEPENDENT DRAINAGE WITH YELLOW URINE OUTPUT. IV IN LEFT WRIST-SL. BILATERAL LEG WRAPS-C/D/I. PATIENT INSTRUCTED TO USE CALL LIGHT WHEN NEEDING ASSISTANCE. HOURLY ROUNDS MADE. WILL CONTINUE WITH PLAN OF CARE AND NURSING TO MONITOR.
[2020-05-10 08:00] VITALS: BP 109/56
[2020-05-10 12:00] VITALS: BP 124/68
[2020-05-10 12:30] VITALS: BP 124/68
--- NOTE | 2020-05-10 14:48 | NUR ---
blood noted in collins cath. tubing. patient does not know if she pulled on it or not. will cont. to monitor.
[2020-05-10 16:00] VITALS: BP 120/51
--- NOTE | 2020-05-10 16:22 | NUR ---
LOWER LEG DRESSINGS CHANGED. LEFT LEG WOUND MEASURES 10 CM X 5CM. PINK GRANULATION TISSUE NOTED, AND RIGHT LEG WOUND MEASURES 7.5 CM X 9 CM. PINK GRANULATION TISSUE NOTED. XERO FORM GAUZE WITH ABD, KERLIX AND VINNIE WRAP.
--- NOTE | 2020-05-10 19:46 | NUR ---
A&OX4 BUT FORGETFUL. PWD. UP IN CHAIR ALL DAY WITH LEGS UP AND TOLERATING WELL. CONTINUES ON 1500 FLUID RESTRICTION AND ONLY DRANK ABOUT 100 CC TEA TODAY. HAD LARGE BM TODAY. TESSIO CATH TO RIGHT CHEST. SL LEFT FOREARM, ALCANTARA CATH INTACT AND PATENT AND STAT LOCKED TO LEFT THIGH. CALLED DR. NIXON ABOUT BLOOD IN URINE. UA OBTAINED AND SENT TO LAB. PHARMACY SAID IZABELA DOES NOT HAVE ANY CONCERNS WITH KIDNEYS. CHRISSY LEG WOUNDS REDRESSED, PICTURES TAKEN. NO LOWER LEG EDEMA. LEFT ARM SWOLLEN. NO C/O PAIN WILL CONT. TO MONITOR.
[2020-05-10 20:00] VITALS: BP 127/55
[2020-05-10 21:44] LABS: URINE CLARITY CLOUDY; URINE COLOR BROWN
[2020-05-10 21:50] LABS: URINE SPECIFIC GRAVITY 1.015 (1.005-1.030)
[2020-05-10 21:51] LABS: ACETEST (KETONE CONFIRMATORY) Negative (Negative); ICTOTEST (BILI CONFIRMATORY) Negative (Negative); URINE BILIRUBIN ND (Negative); URINE BLOOD ND (Negative); URINE GLUCOSE-RANDOM ND (Negative); URINE KETONES ND (Negative); URINE LEUKOCYTES-REFLEX ND (Negative); URINE NITRITE-REFLEX ND (Negative); URINE PROTEIN ND (Negative); URINE REDUCING SUBSTANCE NEGATIVE (Negative); URINE UROBILINOGEN ND E.U./dl (0.2-1.0)
[2020-05-10 21:52] LABS: CASTS None Seen /LPF (None Seen); CRYSTALS None Seen /LPF (None Seen); MUCUS 4-6 Moderate strn/LPF (None Seen); SQUAMOUS 4-10 Moderate /LPF (0-3); URINE WBC-REFLEX 0-5 Rare /HPF (0-5)
[2020-05-11 00:34] VITALS: BP 121/46
[2020-05-11 04:00] VITALS: BP 120/84
[2020-05-11 05:04] LABS: ALBUMIN 2.9 g/dL (3.4-5.0); CALCIUM 7.7 mg/dL (8.5-10.1); CREATININE 2.5 mg/dL (0.6-1.3); POTASSIUM 4.5 mmol/L (3.5-5.1); TOTAL BILIRUBIN 0.8 mg/dL (<0.1-1.0)
[2020-05-11 05:23] LABS: HEMATOCRIT 37.7 % (37.0-47.0); HEMOGLOBIN 12.2 gm/dL (12.0-15.0); MCHC 32.4 g/dL (28.0-37.0); MCV 89.5 fL (80.0-100.0); MPV 8.7 fl. (7.2-11.1); NUCLEATED RBCS 0 /100WBC; RBC 4.21 mil/uL (4.20-5.00); RDW-CV 25.8 % (10.5-14.5); WBC 6.8 thou/uL (4.0-11.0)
[2020-05-11 05:26] LABS: PLATELET COUNT* 40 thou/uL (150-400)
[2020-05-11 06:23] LABS: ABSOLUTE LYMPHOCYTES 1.2 thou/uL (0.8-5.3); ABSOLUTE MONOCYTES 0.3 thou/uL (0.0-1.2); ABSOLUTE NEUTROPHILS 5.3 thou/uL (1.6-8.1); PLATELET ESTIMATE DECREASED
--- NOTE | 2020-05-11 07:01 | NUR ---
PT CARE ASSUMED AT 1930. SAT MAINTAINED IN O2. ALERT AND ORIENTED X4. DENIES PAIN AND SOB. CALL LIGHT WITHIN REACH AND BED IN LOW POSITION. HOURLY ROUNDING DONE FOR PT SAFETY.
[2020-05-11 07:50] VITALS: BP 124/48
[2020-05-11 12:59] VITALS: BP 121/52
[2020-05-11 16:44] VITALS: BP 118/46
--- NOTE | 2020-05-11 18:30 | NUR ---
RECEIVED REPORT. ASSUMED CARE OF PT AROUND 0730. PT A&O X4. UP IN CHAIR DURING AM ASSESSMENT AND VITALS. EMPLOYMENT PROGRAMS ANALYST IN PLACE. MEDS PER EMAR. PT COMPLETED DIALYSIS THIS AFTERNOON. WRAPS TO BLE INTACT. PT WITH FAIR APPETITE - DOES NOT LIKE THE RENAL DIET. ALCANTARA REMAINS IN PLACE TO DD, SCANT OUTPUT. PT CURRENTLY RESTING IN BED. CALL LIGHT IS WITHIN REACH. HOURLY ROUNDING PERFORMED. FALL PRECAUTIONS IN PLACE.
[2020-05-11 19:50] VITALS: BP 98/46
[2020-05-12] VITALS: BP 128/52
[2020-05-12 04:00] VITALS: BP 122/51
[2020-05-12 04:38] LABS: ABSOLUTE LYMPHOCYTES 0.3 thou/uL (0.8-5.3); ABSOLUTE MONOCYTES 0.7 thou/uL (0.0-1.2); ABSOLUTE NEUTROPHILS 7.5 thou/uL (1.6-8.1); BASOPHILS 0.3 %; EOSINOPHILS 0.4 %; HEMOGLOBIN 12.4 gm/dL (12.0-15.0); LYMPHOCYTES 3.3 %; MCH 29.4 pg (26.0-34.0); MCHC 32.7 g/dL (28.0-37.0); MCV 89.9 fL (80.0-100.0); MONOCYTES 8.7 %; MPV 8.7 fl. (7.2-11.1); NUCLEATED RBCS 0 /100WBC; POLYS 87.3 %; RBC 4.23 mil/uL (4.20-5.00); RDW-CV 25.1 % (10.5-14.5); WBC 8.6 thou/uL (4.0-11.0)
[2020-05-12 05:02] LABS: ALBUMIN 2.8 g/dL (3.4-5.0); CALCIUM 7.8 mg/dL (8.5-10.1); POTASSIUM 4.6 mmol/L (3.5-5.1); TOTAL BILIRUBIN 0.8 mg/dL (<0.1-1.0); TOTAL PROTEIN 5.9 g/dL (6.4-8.2)
[2020-05-12 05:40] LABS: PLATELET COUNT* 48 thou/uL (150-400)
--- NOTE | 2020-05-12 07:48 | NUR ---
PT CARE ASSUMED AT 1930. SAT MAINTAINED IN O2. ALERT AND ORIENTED X4. DENIES PAIN. LEGS SORE TO TOUCH. DRESSING CHANGES DONE ON B/L LEGS. CALL LIGHT WITHIN REACH AND BED IN LOW POSITION. HOURLY ROUNDING DONE FOR PT SAFETY.
[2020-05-12 08:00] VITALS: BP 112/47
[2020-05-12 09:00] VITALS: BP 112/47
[2020-05-12] MEDS ORDERED: PREDNISONE 10 M10 MG PO (09:35)
[2020-05-12] MEDS ORDERED: SINGULAIR 10 MG10 M1 PO (09:35)
[2020-05-12] MEDS ORDERED: CARVEDILOL3.125 MG PO (09:35)
[2020-05-12] MEDS ORDERED: VISTARIL 25 MG25 M1 PO (09:36)
[2020-05-12 11:00] VITALS: BP 123/48
[2020-05-12 11:35] VITALS: BP 114/40
--- NOTE | 2020-05-12 14:14 | NUR ---
JAMES SPOKE TO THE PT TO DISCUSS DISCHARGE PLANNING AND HER D/C HOME TODAY WITH HH, AND OUTPATIENT DIALYSIS AT [facility]. PT TO RESUME HH WITH PREVIOUS BETSY . PT TO HAVE OUTPATIENT DIALYSIS WITH [facility] (). PT INITIALLY REQUESTED M-W-F SCHEDULE. HOWEVER AT THIS TIME THERE ARE NO M-W-F CHAIR TIME'S AVAILABLE IN THE [facility]. PT PLANS TO DISCUSS THIS FURTHER WITH THE DIALYSIS CLINIC. CM FAXED PT'S CLINICAL INFO AND D/C ORDERS TO [facility]. PT'S FAMILY TO PROVIDE TRTANSPORT HOME.
--- NOTE | 2020-05-12 15:37 | NUR ---
RECEIVED REPORT. ASSUMED CARE OF PT AROUND 0720. PT A&O X4. AM ASSESSMENT AND VITALS COMPLETED CHARTED. CAP CUTTER IN PLACE. MEDS PER EMAR. DOCTORS ROUNDED AND DISCHARGE ORDERS RECEIVED. DISCHARGE SUMMARY AND CARE NOTES GONE OVER WITH THE PT. PT COMMUNICATES UNDERSTANDING. PT AWARE OF DIALYSIS APPOINTMENT MONDAY AT 0630. PT KNOWS TO [employer] OPERATIONS MANAGER PRESCRIPTIONS FROM PHARMACY. AWARE TO FOLLOW UP WITH CARDIOLOGY, NEPHROLOGY, VASCULAR, AND PCP. IV AND CAP CUTTER REMOVED. LEGS REDRESSED THIS AM BY NOC NURSE - PT REFUSED TO HAVE DRESSINGS CHANGED AGAIN TO GET DC PICS STATING "MY LEGS ARE HEALING FINE". ALL BELONGINGS GATHERED AND SENT OUT WITH PT. PT LEFT WITH TEMPORARY DIALYSIS LINE IN PLACE. PT LEFT UNIT IN WC WITH NURSING STAFF. PT LEFT FACILITY IN CAR WITH BROTHER.
--- NOTE | 2020-05-14 15:53 | CON ---
[address] [address] CONSULTATION Name: RYAN WYLIE Room: [address] IN M.R.#: [id number] Admission: 05/05/20 Attend Phys: Amanda Hardy Discharge: 05/12/20 Date of : 40 Report #: [id number] THIS REPORT FOR: //name// cc: Mark Glaser MD, David L. MD ~ THIS REPORT FOR: //name// CC: Mark Oseguera DATE OF SERVICE: 05/06/2020 NEPHROLOGY CONSULTATION CONSULTING PHYSICIAN: Dk Oseguera DO REASON FOR NEPHROLOGY CONSULTATION: Chronic kidney disease stage 4 and fluid overload. REASON FOR ADMISSION: Shortness of breath. HISTORY OF PRESENT ILLNESS: This is a 79-year-old female with past medical history of chronic diastolic congestive heart failure, moderate to severe aortic stenosis, recently diagnosed on echocardiogram in April, chronic kidney disease stage 4 at this point, baseline creatinine has been 2.4-2.5 but lately has been running higher than that, recent admission with fluid overload and bilateral lower extremity cellulitis along with other medical problems, came in because of increasing shortness of breath. She has worsening of lower extremity edema and was started on IV Lasix yesterday. Urine output has not been documented and her creatinine was 3.0 yesterday, which is down from her recent creatinine of 3.7 on 04/25/2020. She is going for a CT chest without contrast today. Her potassium was also towards the higher side, 5.8 today. She was recently admitted from 04/21/2020 to 04/25/2020 with fluid overload and discharged on Bumex 2 mg b.i.d. In addition to Bumex, she was taking potassium supplementation and spironolactone at home. She follows with Dr. Suarez as her outpatient web operations manager. ALLERGIES: No known allergies. REVIEW OF SYSTEMS: As mentioned in the history of present illness, otherwise 10-point review of systems are negative. HOME MEDICATIONS: Include spironolactone 50 mg a day, bumetanide 2 mg b.i.d., carvedilol, atorvastatin, potassium chloride 20 mEq once a day, apixaban, cephalexin, [place] [address] CONSULTATION Name: RYAN WYLIE Room: [address] IN [facility].#: [id number] Admission: 05/05/20 Attend Phys: Amanda Hardy Discharge: 05/12/20 Date of : 40 Report #: [id number] PAST MEDICAL AND SURGICAL HISTORY: History of hypertension, chronic diastolic congestive heart failure, ejection fraction of 50% in 04/21/2020, [id number]-[id number]-pwxfma aortic stenosis, asthma, chronic kidney disease stage 4, baseline creatinine used to be around 2.4-2.5 but now more around 3, asthma, dyslipidemia, anxiety, insomnia, macular edema, vitreomacular traction, venous stasis, pseudophakia, hypertensive retinopathy, appendectomy, , pacemaker replaced. FAMILY HISTORY: Cancer and heart disease. SOCIAL HISTORY: Does not smoke or drink alcohol or use illicit drugs. PHYSICAL EXAMINATION: VITAL SIGNS: Blood pressure is 105/54, temperature is 36.8, pulse rate of 60, respiratory rate is 19 and pulse ox is 98% on 2 liters of oxygen by nasal cannula. GENERAL: She is awake, alert and oriented x 3. HEAD AND EYES: Atraumatic, normocephalic. Normal conjunctivae. EARS, NOSE, AND THROAT: Normal ears and nose. Mucous membranes are moist. NECK: There is no JVD. CHEST: Bilaterally diminished breath sounds posteriorly. CARDIOVASCULAR: S1, S2 normal. No murmurs. ABDOMEN: Soft, nondistended, nontender. Bowel sounds are present. EXTREMITIES: Lower extremities, there is 3+ lower extremity edema including presacral edema. NEUROLOGIC: Function grossly intact. PSYCHIATRIC: Mood and affect seems to be normal. LABORATORY DATA: WBC is 3.8 and hemoglobin is 11.4, platelet count is 73. Sodium is 137, potassium is 5.8, BUN is 87, creatinine is 3.1 and other labs were reviewed. IMAGING: Chest x-ray was reviewed. ASSESSMENT: 1. Chronic kidney disease stage 4, admitted with fluid overload. Baseline creatinine of around 3s now. History of hypertensive nephropathy, follows with Dr. Suarez as outpatient. Creatinine 3.0 on admission. 2. Acute on chronic diastolic congestive heart failure, ejection fraction of 50% in 04/2020. 3. Hyperkalemia in the setting of renal insufficiency. 4. Bronchospasm, being treated by Pulmonology. 5. Thrombocytopenia. Defer to primary team for the management. 6. History of hypertension. Blood pressure is controlled. 7. History of bilateral lower extremity cellulitis, seems like [place] [address] CONSULTATION Name: RYAN WYLIE Room: [address] IN M.Meet.#: [id number] Admission: 05/05/20 Attend Phys: Amanda Hardy Discharge: 05/12/20 Date of : 40 Report #: [id number] PLAN: 1. Agree with diuresis on Lasix drip as per Cardiology, recommend putting a Cortes catheter in for accurate I's and O's. Discussed with nursing. 2. Avoid potassium supplements. Potassium should be checked this afternoon and if it is greater than 5.7, I should be called. He is already on a renal diet and a low potassium diet. 3. Fluid restriction of 1.5 liters a day and 2 grams sodium diet. Thank you and we will continue to follow with you. Discussed with the patient's nurse and the patient. <ELECTRONICALLY SIGNED> By: Luz Guzman MD 05/14/20 [id number] Guzman MD /nt
--- NOTE | 2020-05-18 08:52 | CON ---
[address] [address] CONSULTATION Name: RYAN WYLIE Room: [address] IN M.R.#: [id number] Admission: 05/05/20 Attend Phys: Amanda Hardy Discharge: 05/12/20 Date of : 40 Report #: [id number] THIS REPORT FOR: //name// cc: Mark Glaser MD, David L. MD ~ THIS REPORT FOR: //name// CC: Mark Oseguera DATE OF SERVICE: 05/05/2020 CONSULT REQUESTED BY: Dk Oseguera DO INDICATION FOR CONSULTATION: Shortness of breath. HISTORY OF PRESENT ILLNESS: This is a 79-year-old female with past medical history includes a history of aortic valve replacement. The patient has developed aortic stenosis in the replaced bioprosthetic aortic valve. The patient also does have a history of renal failure, I am not aware of the patient's baseline creatinine; however, the lowest creatinine I can find within the last year is 2.4. The patient has been recently admitted to this hospital and has been treated for fluid overload. The patient also did have infiltrates and was treated with broad-spectrum antibiotics back in March. The patient is now admitted with acute shortness of breath. She was also reported to be wheezing aloud, initially was in respiratory distress requiring a BiPAP. She did receive Solu-Medrol in the Emergency Room as well as DuoNeb via the nebulizer. The patient does not report any significant sputum production, although she has had a cough. There is no chest pain at this time. There is no runny nose, no sore throat, no fever, no chills. She does have ongoing pain in lower extremities. She also does have swelling of lower extremity. Swelling of lower extremities; however, is less than her baseline. Since this morning, there have been a significant improvement in the patient's respiratory status. She reports significant improvement in her shortness of breath. Currently, she is not only off BiPAP, but in fact is off oxygen as well and is currently on room air. She still does state that her shortness of breath, currently is more than what she has at her baseline. The patient does have some joint pains, which are at baseline. She has had ulcers in lower extremities. REVIEW OF SYSTEMS. The patient answered to the negative for 12 questions for review of systems except as mentioned above. The patient's echocardiogram, which shows abnormalities in the aortic valve is in [facility] [place] [address] CONSULTATION Name: ARPIT WYLIESA Room: [address] IN M.R.#: [id number] Admission: 05/05/20 Attend Phys: Amanda Hardy Discharge: 05/12/20 Date of : 40 Report #: [id number] She does have left ventricular hypertrophy, left ventricular ejection fraction is 50%. There is ajnuvlci-fy-fwhtbg aortic stenosis and mild aortic regurgitation and a bioprosthetic aortic valve. The pulmonary artery systolic was 32. Chronic renal failure, the lowest creatinine I see in the records and during the last year is 2.4, unknown as to whether this is the patient's baseline hypertension, congestive heart failure, atrial fibrillation on anticoagulation, hyperlipidemia, macular degeneration, chronic venous stasis, retinopathy, appendectomy, , and pacemaker placement. SOCIAL HISTORY: Lifetime nonsmoker. No known history of heavy alcohol use or illegal drug use. CURRENT MEDICATIONS: List in Aviary reviewed. HOME MEDICATIONS: List also in Aviary reviewed. FAMILY HISTORY: There is no pertinent family history with the exception that the patient has a history of heart disease and cancer in the family. PHYSICAL EXAMINATION: GENERAL: She is alert, awake and oriented. VITAL SIGNS: She is on room air. She is maintaining O2 saturation in the 90s. She does not appear to be in any distress at this time has a pulse of 60 and a blood pressure of 120/57, saturating in the high 90s. Respiratory rate is 17. She is afebrile with a temperature of 36.2. HEENT: Head is normocephalic and atraumatic. Pupils are equal and reactive. There is no throat erythema. She does appear to have a narrow airway. NECK: Does not show raised JVP, asymmetry, mass or lymph nodes. CHEST: Symmetrical expansion on inspection and palpation. On auscultation, breath sounds are bilaterally equal, decreased, expirations are prolonged. I do not hear any added sounds. HEART: Irregular. There is systolic murmur. ABDOMEN: Soft and nontender. EXTREMITIES: Lower extremities show 2+ edema. There is some calf tenderness bilaterally. There are crepe bandages bilateral lower extremities. The uncovered skin over the lower extremities is dry and intact, but she does have bandages in place. NEUROLOGICAL: Moves all extremities bilaterally equally and spontaneously with no focal deficit identified. LABORATORY DATA: The patient's chest x-ray is reviewed. There is mild increase in pulmonary vascular congestion. Chest x-ray in fact looks significantly better than the previous chest x-rays. ASSESSMENT AND PLAN: 1. Shortness of breath. The patient's chest x-ray shows mild pulmonary [facility] [address] [place] [address] CONSULTATION Name: RYAN WYLIE Room: [address] IN ..#: [id number] Admission: 05/05/20 Attend Phys: Amanda Hardy Discharge: 05/12/20 Date of : 40 Report #: [id number] vascular congestion only. This is a considerable improvement compared to the patient's most recent chest x-ray performed just a few days ago. I do not see any new infiltrate either. Overall, chest x-ray looks much better than previous. Therefore, I feel that it will be highly unlikely that her current decompensation is due to fluid overload or development of new infiltrates. It will also be unlikely that she has had thromboembolism considering the patient is on long-term anticoagulation. Therefore, the patient history appears to be consistent with bronchial asthma exacerbation leading to bronchospasm. I will, however, still do a CT chest without contrast to verify that no other items are overlooked. 2. Bronchial asthma exacerbation. We will order more Solu-Medrol as well as nebulized bronchodilators. 3. Fluid overload with bioprosthetic aortic valve/aortic stenosis and chronic renal insufficiency. She does appear to be fluid overloaded. However, it does not appear to me that there is a recent increase in fluid overload. Her chest x-ray in fact shows significant improvement in pulmonary vascular congestion. Therefore, while I agree with continuing with diuresis I suggest being cautious in diuresing her considering significant elevation in creatinine. 4. Pulmonary infiltrates. These in fact look better than the patient's previous chest x-ray. She did receive one dose of ceftriaxone today. I therefore did not order any additional antibiotics now. We will reevaluate tomorrow with CT chest regarding whether any additional antibiotics are indicated. 5. Edema/chronic venous insufficiency. For the sake of completion, I will also do venous Dopplers; however thromboembolism will be very unlikely if the patient in fact is taking Eliquis as prescribed. 6. Chronic atrial fibrillation. She is on anticoagulation as above. 7. History of diastolic heart failure with aortic stenosis. 8. History of coronary artery disease, status post coronary artery bypass graft. 9. Suspected obstructive/central sleep apnea, I feel that it is highly likely she has underlying sleep apnea as well. I will review with her tomorrow regarding whether she is interested in having a sleep study, if she is, then I will be happy to arrange otherwise, we will plan to do a nocturnal pulse oximetry. <ELECTRONICALLY SIGNED> By: Herb Livingston MD 05/18/20 0852 [id number] Livingston MD /nt
== END 2020-05-12 15:25 | disposition home health service (06) | DRG 177 ==
LOC: M.ERS 08:38 → M.2W 10:57 → M.TBA-ER 10:57 → M.2W 15:40
PROVIDERS: Family Medicine; Internal Medicine; Internal Medicine Cardiovascular Disease; Internal Medicine Critical Care Medicine; Internal Medicine Nephrology; Registered Nurse; ADMIT Internal Medicine; ATTEND Internal Medicine
PROC: 5A09357 Assistance with Respiratory Ventilation, Less than 24 Consecutive Hours, Continuous Positive Airway Pressure (ICD-10-PCS; principal; 2020-05-05)
PROC: B5181ZA Fluoroscopy of Superior Vena Cava using Low Osmolar Contrast, Guidance (ICD-10-PCS; 2020-05-07)
PROC: B548ZZA Ultrasonography of Superior Vena Cava, Guidance (ICD-10-PCS; 2020-05-07)
PROC: 0JH63XZ Insertion of Tunneled Vascular Access Device into Chest Subcutaneous Tissue and Fascia, Percutaneous Approach (ICD-10-PCS; 2020-05-07)
PROC: 02HV33Z Insertion of Infusion Device into Superior Vena Cava, Percutaneous Approach (ICD-10-PCS; 2020-05-07)
PROC: 5A1D70Z Performance of Urinary Filtration, Intermittent, Less than 6 Hours Per Day (ICD-10-PCS; 2020-05-08)
PROC: 5A1D70Z Performance of Urinary Filtration, Intermittent, Less than 6 Hours Per Day (ICD-10-PCS; 2020-05-09)
PROC: 5A1D70Z Performance of Urinary Filtration, Intermittent, Less than 6 Hours Per Day (ICD-10-PCS; 2020-05-11)
DX: J15.6 Pneumonia due to other Gram-negative bacteria (principal); I50.33 Acute on chronic diastolic (congestive) heart failure; N18.6 End stage renal disease; I13.2 Hypertensive heart and chronic kidney disease with heart failure and with stage 5 chronic kidney disease, or end stage renal disease; I48.20 Chronic atrial fibrillation, unspecified; N17.9 Acute kidney failure, unspecified; L03.116 Cellulitis of left lower limb; L03.115 Cellulitis of right lower limb; D62 Acute posthemorrhagic anemia; J45.901 Unspecified asthma with (acute) exacerbation; E87.5 Hyperkalemia; D69.6 Thrombocytopenia, unspecified; I49.5 Sick sinus syndrome; E78.5 Hyperlipidemia, unspecified; F41.9 Anxiety disorder, unspecified; E11.22 Type 2 diabetes mellitus with diabetic chronic kidney disease; Z20.828 Contact with and (suspected) exposure to other viral communicable diseases; I87.2 Venous insufficiency (chronic) (peripheral); I25.10 Atherosclerotic heart disease of native coronary artery without angina pectoris; G47.00 Insomnia, unspecified; Z90.49 Acquired absence of other specified parts of digestive tract; Z95.0 Presence of cardiac pacemaker; Z79.899 Other long term (current) drug therapy; Z95.1 Presence of aortocoronary bypass graft; Z95.2 Presence of prosthetic heart valve

== ENCOUNTER → 2020-05-29 | Outpatient (CLI) | payer MEDICARE, OTHER ==
[~2020-05-29] MED LIST changes: +CARVEDILOL3.125 MG PO; +CEPHALEXIN 250250 M1 PO; +VISTARIL 25 MG25 M1 PO
== END ==
LOC: M.WC 03:05
PROVIDERS: ATTEND Family Medicine
DX: I70.238 Atherosclerosis of native arteries of right leg with ulceration of other part of lower leg (principal); L97.812 Non-pressure chronic ulcer of other part of right lower leg with fat layer exposed; I70.248 Atherosclerosis of native arteries of left leg with ulceration of other part of lower leg; L97.822 Non-pressure chronic ulcer of other part of left lower leg with fat layer exposed; I87.2 Venous insufficiency (chronic) (peripheral); I89.0 Lymphedema, not elsewhere classified; I48.91 Unspecified atrial fibrillation; J45.909 Unspecified asthma, uncomplicated; I13.0 Hypertensive heart and chronic kidney disease with heart failure and stage 1 through stage 4 chronic kidney disease, or unspecified chronic kidney disease; I50.9 Heart failure, unspecified; N18.9 Chronic kidney disease, unspecified; E78.00 Pure hypercholesterolemia, unspecified; F41.9 Anxiety disorder, unspecified; Z86.73 Personal history of transient ischemic attack (TIA), and cerebral infarction without residual deficits; Z79.01 Long term (current) use of anticoagulants

== ENCOUNTER → 2020-06-10 | Outpatient (CLI) | payer MEDICARE, OTHER ==
--- NOTE | 2020-06-22 08:28 | SLEEP ---
[address] [address] SLEEP STUDY REPORT Name: RYAN WYLIE Room: [facility] JANN Carty#: [id number] Admission: 06/10/20 Attend Phys: Mark Glaser MD Discharge: Date of : 40 Report #: [id number] THIS REPORT FOR: //name// CC: Mark Glaser This study has been reviewed in its entirety by a board certified sleep specialist DATE OF SERVICE: 06/10/2020 SLEEP STUDY INDICATION FOR SLEEP STUDY: Excessive daytime sleepiness. INTERPRETATION: Total duration of the study is 359 minutes out of which she was asleep for 212 minutes with an overall sleep efficiency of 59%. Sleep onset initially occurred 12 minutes after lying down in bed and REM onset was delayed to 113 minutes after sleep onset. N1 sleep duration was 18%, N2 duration was 65%, N3 duration was 0.5% and REM duration was 16%. This is a split night sleep study. During initial part of the sleep study, the patient is not on positive airway pressure therapy for 101 minutes. During this time, the patient was asleep for 51 minutes. This entire duration was non-REM sleep. The patient had multiple sleep related respiratory events. These included 21 hypopneas. The patient's overall apnea-hypopnea index was 24.9 with a sleep time of 50.7 during the diagnostic portion of the sleep study. Mean heart rate was 60. Periodic limb movement index was elevated to 92 but periodic limb movement index with arousals was 28.4. There were also multiple desaturations recorded. Overall, the patient spent around 3 minutes below an O2 saturation of 90%, O2 saturation otherwise was maintained at or above 90%. The patient was subsequently placed on a CPAP. The patient, however, had difficulty tolerating CPAP and could not exhale well against the constant CPAP pressure. The patient therefore was placed on a BiPAP. The total duration of time the patient was observed in positive airway pressure therapy is 258 minutes out of which she was asleep for 161 minutes. This included 35 minutes in REM sleep, the rest being non-REM sleep. The patient's mean heart rate was now 61 with a periodic limb movement index still elevated to 63 and periodic limb movement index with arousals being 35.5. Arousal index overall while on BiPAP was elevated to 75. Review of the positive airway pressure titration indicates the patient was initially briefly on a CPAP and she could not tolerate CPAP, she was switched over to BiPAP, was gradually titrated from a BiPAP of 7/4 to reach 12/6 and a BiPAP of 12/6. The patient had adequate control of the sleep disordered respirations. The O2 saturation is also adequately [place] [address] SLEEP STUDY REPORT Name: RYAN WYLIE Room: [facility] JANN Carty#: [id number] Admission: 06/10/20 Attend Phys: Mark Glaser MD Discharge: Date of : 40 Report #: [id number] supine non-REM sleep on the final BiPAP pressure. The patient did not, however, have supine REM sleep on this final BiPAP pressure. IMPRESSION: 1. Obstructive sleep apnea with an apnea-hypopnea index of 24.9 as described above. 2. The patient is unable to tolerate CPAP and failed CPAP. 3. There is adequate control of the patient's obstructive sleep apnea with a BiPAP of 12/6. RECOMMENDATIONS: Recommend BiPAP of 12/6 with heated humidity and mask per the patient preference while asleep. During the sleep study, ResMed AirFit F20 size small mask with a C-Flex of 3 was used. Recommend avoiding driving or other activities requiring vigilance if drowsy. The entire sleep study was reviewed by board certified sleep physician. <ELECTRONICALLY SIGNED> By: Herb Livingston MD 06/22/20 0828 [id number] Livingston MD /nt
== END ==
LOC: M.SLEEPLAB 20:45
PROVIDERS: ATTEND Internal Medicine
DX: G47.33 Obstructive sleep apnea (adult) (pediatric) (principal); G47.34 Idiopathic sleep related nonobstructive alveolar hypoventilation